=== PATIENT | female | born 1945 | race Caucasian/White ===

== ENCOUNTER 2017-09-18 11:18 | Outpatient (CLI) | payer MEDICARE ==
--- NOTE | 2017-09-18 17:42 | XRAY Report ---
THREE VIEW LUMBAR SPINE: 09/18/2017 CLINICAL INDICATION: Chronic back pain. AP, lateral, coned-down views of the lumbar spine demonstrate moderate degenerative disk and facet di sease, with minimal S-shaped scoliosis. There is no evidence of acute fracture or subluxation. The bowel gas pattern appears unremarkable. IMPRESSION: MODERATE DEGENERATIVE CHANGES, WITH MINIMAL SCOLIOSIS. JOB #: [id number] EXT JOB #:[id number]
== END 2017-09-18 11:19 | disposition home or self-care (01) ==
LOC: DI.S 11:18
PROVIDERS: ATTEND Nurse Practitioner Family
DX: M47.896 Other spondylosis, lumbar region (principal); M51.36 Other intervertebral disc degeneration, lumbar region; M41.86 Other forms of scoliosis, lumbar region
CPT/HCPCS: 72100

== ENCOUNTER 2017-10-25 11:28 | Outpatient (CLI) | payer MEDICARE ==
--- NOTE | 2017-10-26 13:44 | XRAY Report ---
DATE OF SERVICE: 10/25/2017 LEFT HIP AND PELVIS: 10/25/2017 CLINICAL INDICATION: Left hip pain. Frontal view of the hips and pelvis and frogleg lateral view of the left hip demonstrate moderate lef t hip osteoarthritis. There is no evidence of acute fracture or dislocation. No radiopaque foreign body i s seen in the soft tissues. IMPRESSION: Moderate left hip osteoarthritis. TD: 10/25/2017 18:47
== END 2017-10-25 11:29 | disposition home or self-care (01) ==
LOC: DI.S 11:28
PROVIDERS: ATTEND Nurse Practitioner Family
DX: M16.12 Unilateral primary osteoarthritis, left hip (principal)

== ENCOUNTER 2018-02-14 10:21 | Outpatient (CLI) | payer MEDICARE, OTHER ==
--- NOTE | 2018-02-14 14:04 | Ultrasound Report ---
RENAL ULTRASOUND: 02/14/2018 CLINICAL INDICATION: Chronic UTI, back pain. TECHNIQUE: Real-time scanning was performed with front office representative static images obtained. FINDINGS: The right kidney measures 10.6 x 5.7 x 4.7 cm. A 1.4 cm parapelvic cyst is present. No hydronephrosis, solid renal lesion, or perinephric collection is seen. The left kidney measures 11.3 x 6.4 x 5.3 cm. Parapelvic cysts are present, the largest measuring 1.8 cm. No hydronephrosis, solid renal lesion, or perinephric collection is seen. Prevoid, the bladder measures 7.7 x 7.1 x 3.7 cm, yielding a prevoid volume of 106 mL. The bladder wall appears normal. Bilateral ureteral jets are visualized. Postvoid residual is 55 mL. IMPRESSION: 55 ML POSTVOID RESIDUAL. NO HYDRONEPHROSIS. TD: 02/14/2018 14:03
== END 2018-02-14 10:22 | disposition home or self-care (01) ==
LOC: DI 10:21
PROVIDERS: ATTEND Nurse Practitioner Family
DX: N39.0 Urinary tract infection, site not specified (principal); M54.9 Dorsalgia, unspecified
CPT/HCPCS: 76770

== ENCOUNTER 2018-07-08 11:24 | Outpatient (CLI) | payer MEDICARE, OTHER ==
--- NOTE | 2018-07-08 16:06 | Ultrasound Report ---
Reason: edema,unspecified Procedure Date: 07/08/2018 Accession Number: [id number] / [id number] Procedure: US - Duplex Ext Veins Bilateral CPT Code: FULL RESULT: EXAM: BILATERAL LOWER EXTREMITY VENOUS ULTRASOUND EXAM DATE: 07/08/2018 01:01 PM. CLINICAL HISTORY: Edema,unspecified. COMPARISON: None. TECHNIQUE: Real-time sonographic vascular imaging was performed by the lay out machine operator through the lower extremities utilizing both color-flow and Doppler spectral analysis. Multiple employee relations representative static images were saved for review. FINDINGS: Right: Common Femoral Vein (CFV): Normal. CFV-GSV Junction: Normal. Profunda Femoral Vein (PFV): Normal. Femoral Vein (FV) Prox: Normal. Femoral Vein (FV) Mid: Normal. Femoral Vein (FV) Dist: Normal. Popliteal Vein: Normal. Posterior Tibial Veins: Normal. Peroneal Veins: Normal. Left: Common Femoral Vein (CFV): Normal. CFV-GSV Junction: Normal. Profunda Femoral Vein (PFV): Normal. Femoral Vein (FV) Prox: Normal. Femoral Vein (FV) Mid: Normal. Femoral Vein (FV) Dist: Nonocclusive thrombus is present in the distal femoral vein. Popliteal Vein: Normal. Posterior Tibial Veins: Normal. Peroneal Veins: Normal. Other: Superficial soft tissue edema is present in the legs bilaterally. IMPRESSION: 1. Nonocclusive thrombus in the left distal femoral vein. RADIA The above findings were discussed with Didi Upton RN by Dr. Nik Lacy at 16:04 hrs on 07/08/18. The ordering provider only has limited office hours on Fridays.
== END 2018-07-08 11:25 | disposition home or self-care (01) ==
LOC: DI 11:24
PROVIDERS: ATTEND Nurse Practitioner Family
DX: I82.412 Acute embolism and thrombosis of left femoral vein (principal)
CPT/HCPCS: 93970

== ENCOUNTER 2018-07-24 15:08 | Outpatient (CLI) | payer MEDICARE, OTHER ==
--- NOTE | 2018-07-25 08:37 | Ultrasound Report ---
Reason: L DISTAL FEMORAL VEIN NON OCCLUSIVE Procedure Date: 07/24/2018 Accession Number: [id number] / [id number] Procedure: US - Duplex Ext Veins Left CPT Code: FULL RESULT: EXAM: LEFT LOWER EXTREMITY VENOUS ULTRASOUND EXAM DATE: 07/24/2018 03:24 PM. CLINICAL HISTORY: Left distal femoral vein non occlusive. COMPARISON: Duplex external veins bilateral 07/08/2018 11:42 AM. TECHNIQUE: Real-time sonographic vascular imaging was performed by the charter [employer] executive director through the lower extremity utilizing both color-flow and Doppler spectral analysis. Multiple account maintenance representative static images were saved for review. FINDINGS: Common Femoral Vein (CFV): Normal. CFV-GSV Junction: Normal. Profunda Femoral Vein (PFV): Normal. Femoral Vein (FV) Prox: Normal. Femoral Vein (FV) Mid: Normal. Femoral Vein (FV) Dist: Normal. Popliteal Vein: Normal. Posterior Tibial Veins: Not well seen. Peroneal Veins: Not well seen. Contralateral Side CFV: Normal. Other: None. IMPRESSION: 1. Suboptimal visualization of posterior tibial and peroneal veins. 2. Given the limitations, no evidence for deep venous thrombosis. RADIA
== END 2018-07-24 15:09 | disposition home or self-care (01) ==
LOC: DI 15:08
PROVIDERS: ATTEND Physician Assistant
DX: I82.90 Acute embolism and thrombosis of unspecified vein (principal)

== ENCOUNTER 2018-08-15 20:56 | Outpatient (CLI) | payer MEDICARE, OTHER | END 2018-08-15 20:57 | disposition critical access hospital (66) | LOC: EMS 20:56 | PROVIDERS: ATTEND Surgery | DX: M25.552 Pain in left hip (principal) | CPT/HCPCS: A0425; A0427 ==

== ENCOUNTER 2018-08-15 21:21 | Emergency (ER) | payer MEDICARE, OTHER ==
[2018-08-15] MEDS ORDERED: ONDANSETRON 4 MG/2 ML VIAL IVP STA (21:44)
[2018-08-15] MEDS ORDERED: fentaNYL 100 MCG/2 ML VIAL IVP STA (21:44)
--- NOTE | 2018-08-15 22:08 | ED Physician Documentation ---
History of Present Illness - Stated complaint Stated Complaint: L HIP PAIN - Chief complaint Chief Complaint: Ext Problem - Additonal information Additional information: 73-year-old female presents the emergency department with worsening left hip pain. The patient has a history of significant degenerative changes in her left hip and is currently in the process of being worked up for a total joint replacement. Tonight the patient reports worsening pain in the hip. The patient has not taken her nighttime medications. No new injury. No new trauma. The patient denies pain distal to the hip or swelling of the leg. Symptoms are described as moderate. No other associated symptoms. No relieving factors Review of Systems Constitutional: denies: Fever Cardiac: denies: Chest pain / pressure, Pedal edema, Calf pain Respiratory: denies: Cough GI: denies: Abdominal Pain Skin: denies: Rash Musculoskeletal: reports: Extremity pain, Joint pain. denies: Extremity swelling, Joint swelling PD PAST MEDICAL HISTORY - Past Medical History Past Medical History: No Cardiovascular: Peripheral Vascular Disease Respiratory: None Neuro: None Endocrine/Autoimmune: HyPOthyroidism GI: None BIG DATA LEAD: None : Frequency HEENT: None Psych: Depression, Anxiety Musculoskeletal: None Derm: None - Past Surgical History Past Surgical History: No /BIG DATA LEAD: Other - Present Medications Home Medications: Ambulatory Orders Medication Instructions Recorded Confirmed RX: Diclofenac Sodium 08/15/18 RX: Furosemide 20 mg PO 08/15/18 RX: Gabapentin 600 mg PO 08/15/18 RX: Potassium Chloride 10 meq PO 08/15/18 oxyCODONE [Roxicodone] 5 mg PO ONCE 08/15/18 08/15/18 - Allergies Allergies/Adverse Reactions: Allergies Allergy/AdvReac Type Severity Reaction Status Date / Time codeine [Codeine] AdvReac Intermediate unknown Verified 08/15/18 21:33 - Social History Does the pt smoke?: No Smoking Status: Never smoker Does the pt drink ETOH?: No Does the pt have substance abuse?: No - Immunizations Immunizations are current?: Yes Immunizations: TDAP >10years/unknown - POLST Patient has POLST: No PD ED PE NORMAL - General General: Alert and oriented X 3, No acute distress - HEENT HEENT: Atraumatic, PERRL, EOMI, Ears normal - Cardiac Cardiac: RRR - Respiratory Respiratory: No respiratory distress - Derm Derm: Normal color - Extremities Extremities: No deformity. No: No tenderness to palpate (The patient has tenderness to palpation in the left hip and decreased range of motion secondary to pain. There is no swelling of the extremity. The patient has a normal dorsalis pedis pulse and brisk cap refill. 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 There is more flattening of the left femoral head compared to the right. ) PD MEDICAL DECISION MAKING - ED course ED course: The patient has severe degenerative changes in the left hip. The patient is in the process of being worked up by a orthopedic surgeon for a hip replacement. Since there is no fracture the patient appears appropriate for ongoing outpatient management. Currently the patient appears appropriate for discharge. I discussed the findings with the patient and she understands and agrees. I discussed warning signs and recommended returning to the emergency department for any worsening or concerns. Departure - Departure Disposition: 01 Home, Self Care Clinical Impression: Hip pain, acute Condition: Good Instructions: ED Degenerative Joint Disease Follow-Up: Ashley Paredes PA [Primary Care Provider] - Within 1 week Comments: Please return to the emergency department for worsening symptoms or any concerns Discharge Date/Time: 08/15/18 23:12
[2018-08-15] MEDS ORDERED: HYDROmorphone 1 MG/ML CARPUJECT IVP STA (22:24)
--- NOTE | 2018-08-15 22:31 | XRAY Report ---
Reason: pain Procedure Date: 08/15/2018 Accession Number: [id number] / [id number] Procedure: XR - Hip w/Pelvis 2-3V LT CPT Code: FULL RESULT: EXAM: LEFT HIP AND PELVIS RADIOGRAPHY. EXAM DATE: 08/15/2018 10:14 PM. HISTORY: Chronic left hip pain. COMPARISONS: Hip with pelvis 2-3 view lateral 10/25/2017 11:44 AM. TECHNIQUE: 1 view of the pelvis and 1 view of the hip. 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 There is more flattening of the left femoral head compared to the right. Soft Tissues: Normal. No soft tissue swelling. 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 There is more flattening of the left femoral head compared to the right. RADIA
[2018-08-15 23:10] VITALS: BP 151/93
== END 2018-08-15 23:12 | disposition home or self-care (01) ==
LOC: EDUNIT# → ED 21:21
DX: M25.552 Pain in left hip (principal); I73.9 Peripheral vascular disease, unspecified; E03.9 Hypothyroidism, unspecified
CPT/HCPCS: 73502; 96374; 96375; 99283; J1170

== ENCOUNTER 2020-01-21 10:30 | Outpatient (CLI) | payer MEDICARE, OTHER ==
--- NOTE | 2020-01-21 12:50 | XRAY Report ---
Reason: COUGH Procedure Date: 01/21/2020 Accession Number: [id number] / [id number] Procedure: XR - Chest 2 View X-Ray CPT Code: 88207 Final Report FULL RESULT: EXAM: CHEST RADIOGRAPHY EXAM DATE: 01/21/2020 10:36 AM. CLINICAL HISTORY: COUGH. COMPARISON: None. TECHNIQUE: 2 views. FINDINGS: Lungs/Pleura: Question small area of infiltrate left heart border. No other focal opacities evident. No pleural effusion. No pneumothorax. Normal volumes. Mediastinum: Heart and mediastinal contours are unremarkable. Other: Degenerative change in the spine. IMPRESSION: Question early infiltrate left lower lung. Otherwise negative. RADIA
== END 2020-01-21 10:31 | disposition home or self-care (01) ==
LOC: DI 10:30
PROVIDERS: ATTEND Physician Assistant
DX: R05 Cough (principal)
CPT/HCPCS: 71046; U0002

== ENCOUNTER 2020-01-21 17:02 | Outpatient (CLI) | payer MEDICARE, OTHER | END 2020-01-21 17:03 | disposition home or self-care (01) | LOC: COV 17:02 | PROVIDERS: ATTEND Family Medicine | DX: R05 Cough (principal) ==

== ENCOUNTER 2020-08-10 08:00 | Outpatient (CLI) | payer MEDICARE ==
--- NOTE | 2020-08-10 12:59 | XRAY Report ---
PROCEDURE: Hip w/Pelvis 2-3V LT INDICATIONS: LEFT HIP PAIN TECHNIQUE: AP pelvis with lateral view(s) of the bilateral hip(s). COMPARISON: 08/15/2018. FINDINGS: Bones: Patient is now status post bilateral total hip arthroplasty. No evidence for hardware complic ation. Lower lumbar spondylosis. No fractures or dislocations. Pelvic ring appears intact. No suspi cious bony lesions. Soft tissues: The visualized bowel gas pattern is normal. No suspicious soft tissue calcifications. IMPRESSION: 1. Left hip without acute radiographic abnormalities. 2. Status post bilateral total hip arthroplasty. No evidence for hardware complication. 3. Lower lumbar spondylosis. Reviewed by: Matias Dominguez MD on 08/10/2020 12:58 PM PDT Approved by: Matias Dominguez MD on 08/10/2020 12:58 PM PDT Station ID: [id number]
--- NOTE | 2020-08-10 13:03 | XRAY Report ---
PROCEDURE: Knee 4 View LT INDICATIONS: LEFT KNEE PAIN TECHNIQUE: 4 views of the left knee(s) were acquired. COMPARISON: None. FINDINGS: Bones: No acute fractures or dislocations. No suspicious bony lesions. Soft tissues: No joint effusion. No suspicious soft tissue calcifications. IMPRESSION: Left knee without acute fracture or dislocation. There is age indeterminate fracture of a small enthesophyte involving the enthesophyte of the distal quadriceps tendon at its insertion site onto the superior patella. Recommend clinical correlation for site of tenderness. If there is persistent clinical concern for a radiographically occult fracture, recommend immobilizat ion and repeat imaging in 10 to 14 days. Reviewed by: Matias Dominguez MD on 08/10/2020 1:02 PM PDT Approved by: Matias Dominguez MD on 08/10/2020 1:02 PM PDT Station ID: [id number]
== END 2020-08-10 23:59 | disposition home or self-care (01) ==
LOC: DI.S 08:00
PROVIDERS: ATTEND Physician Assistant Medical
DX: Z96.653 Presence of artificial knee joint, bilateral (principal); M47.816 Spondylosis without myelopathy or radiculopathy, lumbar region; R93.6 Abnormal findings on diagnostic imaging of limbs

== ENCOUNTER 2021-07-15 12:29 | Outpatient (CLI) | payer MEDICARE, OTHER ==
[2021-07-15 15:55] LABS: ALBUMIN/GLOBULIN RATIO 1.2 (1.0-2.2); ALKALINE PHOSPHATASE 69 IU/L (42-121); ALT ALANINE AMINOTRANSFERASE 27 IU/L (10-60); AST ASPARTATE AMINOTRANSFERASE 39 IU/L (10-42); BILIRUBIN,TOTAL 0.8 mg/dL (0.2-1.0); BUN - BLOOD UREA NITROGEN 14 mg/dL (6-20); CALCIUM 9.3 mg/dL (8.5-10.3); CARBON DIOXIDE - CO2 27 mmol/L (21-32); CHLORIDE 103 mmol/L (101-111); CHOLESTEROL 296 mg/dL; CREATININE 0.8 mg/dL (0.4-1.0); GFR - MDRD 70 (>89); GLUCOSE 108 mg/dL (70-100); HDL CHOLESTEROL 59 mg/dL; LDL CHOLESTEROL,CALCULATED 200 mg/dL; LDL/HDL RATIO 3.4 (<4.4); POTASSIUM 4.2 mmol/L (3.5-5.0); SODIUM 142 mmol/L (135-145); TOTAL PROTEIN 7.4 g/dL (6.7-8.2); TRIGLYCERIDES 185 mg/dL; VLDL CHOLESTEROL 37 mg/dL
[2021-07-15 20:55] LABS: ESTIMATED AVERAGE GLUCOSE 131 mg/dL (70-100); HEMOGLOBIN A1c% 6.2 % (4.27-6.07)
== END 2021-07-15 12:30 | disposition home or self-care (01) ==
LOC: LAB.S 12:29
PROVIDERS: ATTEND Family Medicine
DX: E11.9 Type 2 diabetes mellitus without complications (principal); E78.2 Mixed hyperlipidemia
CPT/HCPCS: 36415; 80053; 80061; 83036; 83721

== ENCOUNTER 2023-02-01 11:49 | Outpatient (CLI) | payer MEDICARE ==
[2023-02-01 14:15] LABS: BASOPHILS % (AUTO) 0.5 %; EOSINOPHILS # (AUTO) 0.1 10^3/uL (0.0-0.7); EOSINOPHILS % (AUTO) 1.5 %; HCT - HEMATOCRIT 45.1 % (37.0-47.0); HGB - HEMOGLOBIN 14.9 g/dL (12.0-16.0); LYMPHOCYTES # (AUTO) 2.2 10^3/uL (1.5-3.5); LYMPHOCYTES % (AUTO) 26.5 %; MEAN CORPUSCULAR HEMOGLOBIN 29.3 pg (27.0-31.0); MEAN CORPUSCULAR VOLUME 88.6 fL (81.0-99.0); MEAN PLATELET VOLUME 10.7 fL (7.9-10.8); MONOCYTES # (AUTO) 0.7 10^3/uL (0.0-1.0); MONOCYTES % (AUTO) 8.2 %; NEUTROPHILS # (AUTO) 5.2 10^3/uL (1.5-6.6); NEUTROPHILS % (AUTO) 62.9 %; PLT - PLATELET COUNT 272 10^3/uL (130-450); RED BLOOD COUNT 5.09 10^6/uL (4.20-5.40); RED CELL DISTRIBUTION WIDTH 12.7 % (12.0-15.0); WHITE BLOOD COUNT 8.3 x10^3/uL (4.8-10.8)
[2023-02-01 14:41] LABS: ALBUMIN/GLOBULIN RATIO 1.2 (1.0-2.2); ALKALINE PHOSPHATASE 61 IU/L (42-121); ALT ALANINE AMINOTRANSFERASE 25 IU/L (10-60); AST ASPARTATE AMINOTRANSFERASE 27 IU/L (10-42); BILIRUBIN,TOTAL 0.6 mg/dL (0.2-1.0); BUN - BLOOD UREA NITROGEN 18 mg/dL (6-20); CALCIUM 9.5 mg/dL (8.5-10.3); CARBON DIOXIDE - CO2 28 mmol/L (21-32); CHLORIDE 104 mmol/L (101-111); CHOL/HDL RATIO 3.6 (<4.4); CHOLESTEROL 197 mg/dL; CREATININE 0.8 mg/dL (0.4-1.0); GFR - MDRD 70 (>89); GLUCOSE 117 mg/dL (70-100); HDL CHOLESTEROL 55 mg/dL; LDL CHOLESTEROL,CALCULATED 115 mg/dL; LDL/HDL RATIO 2.1 (<4.4); SODIUM 138 mmol/L (135-145); TOTAL PROTEIN 7.3 g/dL (6.7-8.2); TRIGLYCERIDES 136 mg/dL; VLDL CHOLESTEROL 27 mg/dL
[2023-02-01 14:43] LABS: CREATININE,URINE 147.5 mg/dL; MICROALBUM/CREATININE RATIO,UR 26.4 ug/mg (<30.0); MICROALBUMIN,URINE 3.9 mg/dL (0-300.0)
[2023-02-01 15:10] LABS: ESTIMATED AVERAGE GLUCOSE 134 mg/dL (70-100); HEMOGLOBIN A1c% 6.3 % (4.27-6.07)
== END 2023-02-01 11:50 | disposition home or self-care (01) ==
LOC: LAB.S 11:49
PROVIDERS: ATTEND Family Medicine
DX: E11.69 Type 2 diabetes mellitus with other specified complication (principal); I10 Essential (primary) hypertension
CPT/HCPCS: 36415; 80053; 80061; 82043; 82570; 83036; 83721; 85025

== ENCOUNTER 2023-04-02 08:00 | Outpatient (CLI) | payer MEDICARE | END 2023-04-02 23:59 | disposition home or self-care (01) | LOC: LAB.R 08:00 | PROVIDERS: ATTEND Physician Assistant | DX: R31.9 Hematuria, unspecified (principal) | CPT/HCPCS: 87077; 87086; 87181 ==

== ENCOUNTER 2023-04-10 08:00 | Outpatient (CLI) | payer MEDICARE ==
[2023-04-10 19:08] LABS: BILIRUBIN,URINE NEGATIVE (NEGATIVE); GLUCOSE, URINE (UA) NEGATIVE (NEGATIVE); KETONES,URINE (UA) NEGATIVE (NEGATIVE); LEUKOCYTE ESTERASE, URINE SMALL (NEGATIVE); NITRITE,URINE NEGATIVE (NEGATIVE); OCCULT BLOOD,URINE TRACE-INTA (NEGATIVE); PROTEIN,URINE NEGATIVE (NEGATIVE); UROBILINOGEN,URINE 0.2 (NORMAL) E.U./dL (NORMAL)
[2023-04-10 19:09] LABS: CLARITY,URINE CLEAR (CLEAR)
[2023-04-10 19:19] LABS: BACTERIA,URINE Rare /HPF (None Seen); SQUAMOUS EPITHELIAL CELL,UR FEW Squamous (<= Few)
== END 2023-04-10 23:59 | disposition home or self-care (01) ==
LOC: LAB.S 08:00
PROVIDERS: ATTEND Emergency Medicine
DX: R31.9 Hematuria, unspecified (principal)
CPT/HCPCS: 81001; 87086

== ENCOUNTER 2023-08-19 15:39 | Outpatient (CLI) | payer MEDICARE | END 2023-08-19 15:40 | disposition critical access hospital (66) | LOC: EMS 15:39 | DX: R53.1 Weakness (principal); R41.0 Disorientation, unspecified; R50.9 Fever, unspecified; R11.10 Vomiting, unspecified | CPT/HCPCS: A0425; A0427 ==

== ENCOUNTER 2023-08-19 16:06 | Emergency (ER) | payer MEDICARE ==
[2023-08-19] MEDS ORDERED: IBUPROFEN 800 MG TABLET PO STA (16:21)
[2023-08-19] MEDS ORDERED: ONDANSETRON 4 MG/2 ML VIAL IVP STA (16:21)
[2023-08-19] MEDS ORDERED: SODIUM CHLORIDE 0.9% 1,000 ML IV STA ×2 (16:21→17:15)
[2023-08-19] MEDS ORDERED: ACETAMINOPHEN 325 MG TABLET PO STA (16:21)
--- NOTE | 2023-08-19 16:25 | ED Physician Documentation ---
History of Present Illness - Stated complaint Stated Complaint: AMS - History obtained from History obtained from: Patient, EMS - Additonal information Additional information: The patient comes to the emergency department chief complaint of fever and period of unresponsiveness. The patient was at [employer] with some friends when she began to say she was not feeling good. The patient became tremulous and the friends decided to drive her home. In route to home, the patient stopped responding to them. Her eyes were open but she was just staring ahead. When they got to her house, they called 911. EMS states that when they arrived, the patient seemed to be slightly confused but was responsive. They states she is improved a lot in route with some IV fluids and with cool air movement. The patient states she has not felt sick with anything recently. No cough, rhinorrhea, sore throat, shortness of breath, abdominal pain, nausea/vomiting, diarrhea, or dysuria. She states that she has had 1 other episode like this when she was on Ozempic and had her dose increased. However, at that time she did not have a fever. She went off the Ozempic and has never taken it again since. No other complaints at this time. PD PAST MEDICAL HISTORY - Past Medical History Cardiovascular: High cholesterol, Peripheral Vascular Disease Respiratory: None Neuro: None Endocrine/Autoimmune: HyPOthyroidism GI: None VERIFICATION ENGINEER: None : Incontinence, Frequency HEENT: None Psych: Depression, Anxiety Musculoskeletal: None Derm: Herpes zoster - Past Surgical History Past Surgical History: No /VERIFICATION ENGINEER: Other - Present Medications Home Medications: Ambulatory Orders Medication Instructions Recorded Confirmed Diclofenac Sodium 2 cap PO DAILY 08/15/18 10/03/18 Furosemide 20 mg PO DAILY 08/15/18 10/03/18 Gabapentin 300 mg PO TID 08/15/18 10/03/18 Potassium Chloride 20 meq PO DAILY 08/15/18 10/03/18 oxyCODONE [Roxicodone] 10 mg PO TID 08/15/18 10/03/18 Cholecalciferol (Vitamin D3) 1 cap DAILY 10/03/18 10/03/18 [Vitamin D3] DULoxetine [Cymbalta] 30 mg PO DAILY 10/03/18 10/03/18 Magnesium 1 tab PO DAILY 10/03/18 10/03/18 Multivitamin [One Daily 1 tab PO DAILY 12/06/18 12/06/18 Multivitamin] levoFLOXacin [Levaquin] 500 mg PO QD #20 tablet 08/19/23 - Allergies Allergies/Adverse Reactions: Allergies Allergy/AdvReac Type Severity Reaction Status Date / Time codeine [Codeine] AdvReac Intermediate unknown Verified 08/19/23 16:31 - Social History Does the pt smoke?: No Smoking Status: Former smoker Does the pt drink ETOH?: No Does the pt have substance abuse?: No - Immunizations Immunizations are current?: Yes Immunizations: TDAP >10years/unknown - POLST Patient has POLST: No PD ED PE NORMAL - Vitals Vital signs reviewed: Yes - General General: Alert and oriented X 3, No acute distress, Well developed/nourished - HEENT HEENT: Atraumatic, PERRL, EOMI, Moist mucous membranes - Neck Neck: Supple, no meningeal sign - Cardiac Cardiac: RRR, No murmur, Strong equal pulses - Respiratory Respiratory: No respiratory distress, Clear bilaterally - Abdomen Abdomen: Soft, Non tender, Non distended - Derm Derm: Normal color, Warm and dry, No rash - Extremities Extremities: No deformity, No edema - Neuro Neuro: Alert and oriented X 3, Other (Grossly intact) - Psych Psych: Normal mood, Normal affect Results - Vitals Vitals: Vital Signs - 24 hr 08/19/23 08/19/23 08/19/23 16:27 16:53 17:48 Temperature 39.5 C H Heart Rate 123 H 110 H 90 Respiratory 27 H 31 H 19 Rate Blood Pressure 159/89 H 167/79 H 123/85 H O2 Saturation 95 95 96 08/19/23 08/19/23 18:31 19:06 Temperature 37.8 C Heart Rate 88 82 Respiratory 14 14 Rate Blood Pressure 147/78 H 122/81 H O2 Saturation 96 96 Oxygen O2 Source Room air - Labs Labs: Laboratory Tests 08/19/23 08/19/23 08/19/23 16:35 16:45 16:45 WBC 11.5 H RBC 4.22 Hgb 12.3 Hct 37.6 MCV 89.1 MCH 29.1 MCHC 32.7 RDW 13.2 Plt Count 207 MPV 9.6 Neut # (Auto) 10.3 H Lymph # (Auto) 0.5 L [place] # (Auto) 0.5 Eos # (Auto) 0.1 Baso # (Auto) 0.0 Absolute Nucleated RBC 0.00 Nucleated RBC % 0.0 Sodium 137 Potassium 4.0 Chloride 106 Carbon Dioxide 24 Anion Gap 7.0 BUN 13 Creatinine 1.1 Estimated GFR (MDRD) 48 L Glucose 194 H Lactic Acid Calcium 8.9 Total Bilirubin 0.5 AST 23 ALT 29 Alkaline Phosphatase 86 Total Protein 6.3 L Albumin 3.5 Globulin 2.8 Albumin/Globulin Ratio 1.3 Lipase < 10 L Urine Color Urine Clarity Urine pH Ur Specific [place] Urine Protein Urine Glucose (UA) Urine Ketones Urine Occult Blood Urine Nitrite Urine Bilirubin Urine Urobilinogen Ur Leukocyte Esterase Urine RBC Urine WBC Urine WBC Clumps Ur Squamous Epith Cells Urine Bacteria Ur Microscopic Review Urine Culture Comments Nasal Adenovirus (PCR) NOT DETECTED Nasal B. parapertussis DNA (PCR) NOT DETECTED Nasal Coronavir 229E PCR NOT DETECTED Nasal Coronavir HKU1 PCR NOT DETECTED Nasal Coronavir NL63 PCR NOT DETECTED Nasal Coronavir OC43 PCR NOT DETECTED Nasal Enterovir/Rhinovir PCR NOT DETECTED Nasal Influenza B PCR NOT DETECTED Nasal Influenza A PCR NOT DETECTED Nasal Parainfluen 1 PCR NOT DETECTED Nasal Parainfluen 2 PCR NOT DETECTED Nasal Parainfluen 3 PCR NOT DETECTED Nasal Parainfluen 4 PCR NOT DETECTED Nasal RSV (PCR) NOT DETECTED Nasal B.pertussis DNA PCR NOT DETECTED Nasal C.pneumoniae (PCR) NOT DETECTED Juni Human Metapneumo PCR NOT DETECTED Nasal M.pneumoniae (PCR) NOT DETECTED Nasal SARS-CoV-2 (PCR) NOT DETECTED 08/19/23 08/19/23 16:45 18:30 WBC RBC Hgb Hct MCV MCH MCHC RDW Plt Count MPV Neut # (Auto) Lymph # (Auto) [place] # (Auto) Eos # (Auto) Baso # (Auto) Absolute Nucleated RBC Nucleated RBC % Sodium Potassium Chloride Carbon Dioxide Anion Gap BUN Creatinine Estimated GFR (MDRD) Glucose Lactic Acid 2.0 Calcium Total Bilirubin AST ALT Alkaline Phosphatase Total Protein Albumin Globulin Albumin/Globulin Ratio Lipase Urine Color YELLOW Urine Clarity HAZY Urine pH 6.0 Ur Specific [place] 1.015 Urine Protein NEGATIVE Urine Glucose (UA) NEGATIVE Urine Ketones NEGATIVE Urine Occult Blood NEGATIVE Urine Nitrite POSITIVE H Urine Bilirubin NEGATIVE Urine Urobilinogen 0.2 (NORMAL) Ur Leukocyte Esterase MODERATE H Urine RBC 0-5 Urine WBC >25 H Urine WBC Clumps PRESENT Ur Squamous Epith Cells RARE Squamous Urine Bacteria Many H Ur Microscopic Review INDICATED Urine Culture Comments INDICATED Nasal Adenovirus (PCR) Nasal B. parapertussis DNA (PCR) Nasal Coronavir 229E PCR Nasal Coronavir HKU1 PCR Nasal Coronavir NL63 PCR Nasal Coronavir OC43 PCR Nasal Enterovir/Rhinovir PCR Nasal Influenza B PCR Nasal Influenza A PCR Nasal Parainfluen 1 PCR Nasal Parainfluen 2 PCR Nasal Parainfluen 3 PCR Nasal Parainfluen 4 PCR Nasal RSV (PCR) Nasal B.pertussis DNA PCR Nasal C.pneumoniae (PCR) Juni Human Metapneumo PCR Nasal M.pneumoniae (PCR) Nasal SARS-CoV-2 (PCR) PD Medical Decision Making - ED course Complexity details: reviewed results, re-evaluated patient, considered differential, d/w patient ED course: The patient was worked up with labs, blood cultures, chest x-ray, urinalysis, and respiratory PCR panel. She was given a liter of NS and treated with Tylenol for her fever. Work-up was unremarkable except for a positive urinalysis. The pt was started on antibiotics for this. She had been hemodynamically stable in the ED, and lactic acid level was normal. She was found to feeling much better on re-evaluation, and I felt she was stable for d/c home. We have discussed the usual indications for return. Departure - Departure Disposition: Home, Self Care Clinical Impression: Urinary tract infection Qualifiers: Urinary tract infection type: acute cystitis Hematuria presence: without hematuria Qualified Code(s): N30.00 - Acute cystitis without hematuria Condition: Stable Instructions: ED UTI Cystitis Female Prescriptions: levoFLOXacin [Levaquin] 500 mg PO QD #20 tablet Comments: You have been found tonight to have a urinary tract infection and has been started on antibiotics for this. This is the reason for your fever. You will need to take your next dose of antibiotics tomorrow and should go to the [facility] to pick pulling machine tender your antibiotics tomorrow morning or afternoon. Prescription for Levaquin has been electronically transmitted to the [facility] in [place], your pharmacy of choice on record. You should also take Tylenol for your fever. The dose for this is 650 mg every 4 hours. Please do not wait until you are spiking up a fever to take the Tylenol, as you may become delirious again like you were earlier today. Be sure you are drinking 8 to 10 cups of water per day to stay hydrated. If you cannot keep your medication down or have Worsening symptoms despite antibiotics, please return to the emergency department. Forms: PCP List Discharge Date/Time: 08/19/23 19:45
[2023-08-19 16:53] LABS: BASOPHILS % (AUTO) 0.3 %; EOSINOPHILS # (AUTO) 0.1 10^3/uL (0.0-0.7); EOSINOPHILS % (AUTO) 0.5 %; HCT - HEMATOCRIT 37.6 % (37.0-47.0); HGB - HEMOGLOBIN 12.3 g/dL (12.0-16.0); LYMPHOCYTES # (AUTO) 0.5 10^3/uL (1.5-3.5); LYMPHOCYTES % (AUTO) 4.6 %; MEAN CORPUSCULAR HEMOGLOBIN 29.1 pg (27.0-31.0); MEAN CORPUSCULAR HGB CONC 32.7 g/dL (32.0-36.0); MEAN CORPUSCULAR VOLUME 89.1 fL (81.0-99.0); MEAN PLATELET VOLUME 9.6 fL (7.9-10.8); MONOCYTES # (AUTO) 0.5 10^3/uL (0.0-1.0); MONOCYTES % (AUTO) 4.6 %; NEUTROPHILS # (AUTO) 10.3 10^3/uL (1.5-6.6); NEUTROPHILS % (AUTO) 89.5 %; PLT - PLATELET COUNT 207 10^3/uL (130-450); RED BLOOD COUNT 4.22 10^6/uL (4.20-5.40); RED CELL DISTRIBUTION WIDTH 13.2 % (12.0-15.0); WHITE BLOOD COUNT 11.5 x10^3/uL (4.8-10.8)
[2023-08-19 17:07] LABS: ALBUMIN 3.5 g/dL (3.2-5.5); ALBUMIN/GLOBULIN RATIO 1.3 (1.0-2.2); ALKALINE PHOSPHATASE 86 IU/L (42-121); ALT ALANINE AMINOTRANSFERASE 29 IU/L (10-60); AST ASPARTATE AMINOTRANSFERASE 23 IU/L (10-42); BILIRUBIN,TOTAL 0.5 mg/dL (0.2-1.0); BUN - BLOOD UREA NITROGEN 13 mg/dL (6-20); CALCIUM 8.9 mg/dL (8.5-10.3); CARBON DIOXIDE - CO2 24 mmol/L (21-32); CHLORIDE 106 mmol/L (101-111); CREATININE 1.1 mg/dL (0.6-1.3); GFR - MDRD 48 (>89); GLUCOSE 194 mg/dL (74-104); SODIUM 137 mmol/L (135-145); TOTAL PROTEIN 6.3 g/dL (6.4-8.9)
[2023-08-19 17:15] LABS: LIPASE < 10 U/L (11-82)
--- NOTE | 2023-08-19 17:15 | XRAY Report ---
PROCEDURE: Chest 1 View X-Ray INDICATIONS: fever TECHNIQUE: One view of the chest was acquired. COMPARISON: None FINDINGS: Surgical changes and devices: None. Lungs and pleura: No pleural effusions or pneumothorax. Lungs are clear. Underlying chronic and int erstitial changes noted Mediastinum: Mediastinal contours appear normal. Heart size is normal. Bones and chest wall: No suspicious bony lesions. Overlying soft tissues appear unremarkable. IMPRESSION: No acute cardiopulmonary findings Reviewed by: Augie Whitehead MD on 08/19/2023 4:14 PM AKDT Approved by: Augie Whitehead MD on 08/19/2023 4:14 PM AKDT Station ID: [id number]
[2023-08-19 17:52] VITALS: O2SAT 96
[2023-08-19 18:02] LABS: B. PARAPERTUSSIS- RESP PCR PAN NOT DETECTED; B. PERTUSSIS- RESP PCR PANEL NOT DETECTED; C. PNEUMONIAE- RESP PCR PANEL NOT DETECTED; CORONAVIRUS 229E-RESP PCR NOT DETECTED; CORONAVIRUS HKU1-RESP PCR NOT DETECTED; CORONAVIRUS NL63-RESP PCR NOT DETECTED; CORONAVIRUS OC43-RESP PCR NOT DETECTED; HUMAN METAPNEUMOVIRUS NOT DETECTED; INFLUENZA A- RESP PCR PANEL NOT DETECTED; INFLUENZA B - RESP PCR PANEL NOT DETECTED; M. PNEUMONIAE- RESP PCR PANEL NOT DETECTED; PARAINFLUENZA VIRUS 1 NOT DETECTED; PARAINFLUENZA VIRUS 2 NOT DETECTED; PARAINFLUENZA VIRUS 3 NOT DETECTED; PARAINFLUENZA VIRUS 4 NOT DETECTED; RHINOVIRUS/ENTEROVIRUS NOT DETECTED; RSV- RESP PCR PANEL NOT DETECTED; SARS-CoV-2 -RESP PCR PANEL NOT DETECTED
[2023-08-19 18:37] LABS: BILIRUBIN,URINE NEGATIVE (NEGATIVE); GLUCOSE, URINE (UA) NEGATIVE (NEGATIVE); KETONES,URINE (UA) NEGATIVE (NEGATIVE); LEUKOCYTE ESTERASE, URINE MODERATE (NEGATIVE); NITRITE,URINE POSITIVE (NEGATIVE); OCCULT BLOOD,URINE NEGATIVE (NEGATIVE); PROTEIN,URINE NEGATIVE (NEGATIVE); UROBILINOGEN,URINE 0.2 (NORMAL) E.U./dL (NORMAL)
[2023-08-19 18:45] LABS: BACTERIA,URINE Many /HPF (None Seen); CLARITY,URINE HAZY (CLEAR); RBC,URINE 0-5 /HPF (0-5); SQUAMOUS EPITHELIAL CELL,UR RARE Squamous (<= Few); WBC CLUMPS,URINE PRESENT; WBC,URINE >25 /HPF (0-5)
[2023-08-19 19:10] VITALS: BP 122/81
[2023-08-19] MEDS ORDERED: levoFLOXacin 250 MG TABLET PO STA (19:10)
--- NOTE | 2023-08-20 05:09 | ED Physician Documentation ---
ED Addendum - Addendum Addendum: 08/20/23 05:08 Patient chart reviewed. 11/30 anaerobic blood cultures positive for gram-negative bacilli. Instructed nursing staff to contact patient and ask her to return to the emergency department.
== END 2023-08-19 19:45 | disposition home or self-care (01) ==
LOC: EDUNIT# → ED 16:06
DX: N30.00 Acute cystitis without hematuria (principal); B96.20 Unspecified Escherichia coli [E. coli] as the cause of diseases classified elsewhere; R78.81 Bacteremia; Z20.822 Contact with and (suspected) exposure to COVID-19; E78.00 Pure hypercholesterolemia, unspecified; E03.9 Hypothyroidism, unspecified; Z79.899 Other long term (current) drug therapy; Z87.891 Personal history of nicotine dependence
CPT/HCPCS: 36415; 71045; 80053; 81001; 83605; 83690; 85025; 87040; 87086; 87181; 87633; 96361; 96374; 99283; 99284; A9270; 81003; 87150

== ENCOUNTER 2023-08-20 06:21 | Inpatient (IN) | payer MEDICARE ==
[2023-08-20 07:44] LABS: BASOPHILS % (AUTO) 0.3 %; EOSINOPHILS # (AUTO) 0.2 10^3/uL (0.0-0.7); EOSINOPHILS % (AUTO) 1.5 %; HCT - HEMATOCRIT 36.4 % (37.0-47.0); HGB - HEMOGLOBIN 12.2 g/dL (12.0-16.0); LYMPHOCYTES # (AUTO) 1.9 10^3/uL (1.5-3.5); LYMPHOCYTES % (AUTO) 16.6 %; MEAN CORPUSCULAR HEMOGLOBIN 29.7 pg (27.0-31.0); MEAN CORPUSCULAR HGB CONC 33.5 g/dL (32.0-36.0); MEAN CORPUSCULAR VOLUME 88.6 fL (81.0-99.0); MEAN PLATELET VOLUME 9.4 fL (7.9-10.8); MONOCYTES % (AUTO) 8.4 %; NEUTROPHILS # (AUTO) 8.3 10^3/uL (1.5-6.6); NEUTROPHILS % (AUTO) 72.8 %; PLT - PLATELET COUNT 232 10^3/uL (130-450); RED BLOOD COUNT 4.11 10^6/uL (4.20-5.40); RED CELL DISTRIBUTION WIDTH 13.4 % (12.0-15.0); WHITE BLOOD COUNT 11.4 x10^3/uL (4.8-10.8)
[2023-08-20 08:01] LABS: ALBUMIN 3.5 g/dL (3.2-5.5); ALBUMIN/GLOBULIN RATIO 1.2 (1.0-2.2); BILIRUBIN,TOTAL 0.4 mg/dL (0.2-1.0); CALCIUM 9.4 mg/dL (8.5-10.3); CREATININE 1.3 mg/dL (0.6-1.3); TOTAL PROTEIN 6.5 g/dL (6.4-8.9)
--- NOTE | 2023-08-20 08:15 | ED Physician Documentation ---
PD HPI ABD PAIN - Stated complaint Stated Complaint: CALLED BY NURSE - Chief complaint Chief Complaint: General - History obtained from History obtained from: Patient - History of Present Illness Timing - onset: How many days ago (The patient was seen yesterday for chills and malaise with some nausea. Found to have a UTI by urinalysis. Vitals and blood test otherwise looking okay. Had blood cultures obtained which showed positive E. coli by bio fire overnight. Patient called to return.) Timing - duration: Days (few) Timing - details: Gradual onset Quality: Aching (some mild pains in lower abd. No flank pain.) Location: Suprapubic Radiation: No: Left flank, Right flank Associated symptoms: Nausea. No: Fever (chills and malaise) Recently seen: Emergency Dept (yesterday) Review of Systems Constitutional: reports: Chills, Myalgias. denies: Fever Nose: denies: Rhinorrhea / runny nose, Congestion Throat: denies: Sore throat Respiratory: denies: Cough GI: reports: Nausea. denies: Vomiting, Diarrhea : denies: Dysuria, Discharge Skin: denies: Rash PD PAST MEDICAL HISTORY - Past Medical History Cardiovascular: High cholesterol, Peripheral Vascular Disease Respiratory: None Neuro: None Endocrine/Autoimmune: HyPOthyroidism GI: None QUILT SEWER: None : Incontinence, Frequency HEENT: None Psych: Depression, Anxiety Musculoskeletal: None Derm: Herpes zoster - Past Surgical History Past Surgical History: No /QUILT SEWER: Other - Present Medications Home Medications: Ambulatory Orders Medication Instructions Recorded Confirmed Diclofenac Sodium 2 cap PO DAILY 08/15/18 10/03/18 Furosemide 20 mg PO DAILY 08/15/18 10/03/18 Gabapentin 300 mg PO TID 08/15/18 10/03/18 Potassium Chloride 20 meq PO DAILY 08/15/18 10/03/18 oxyCODONE [Roxicodone] 10 mg PO TID 08/15/18 10/03/18 Cholecalciferol (Vitamin D3) 1 cap DAILY 10/03/18 10/03/18 [Vitamin D3] DULoxetine [Cymbalta] 30 mg PO DAILY 10/03/18 10/03/18 Magnesium 1 tab PO DAILY 10/03/18 10/03/18 Multivitamin [One Daily 1 tab PO DAILY 12/06/18 12/06/18 Multivitamin] levoFLOXacin [Levaquin] 500 mg PO QD #20 tablet 08/19/23 - Allergies Allergies/Adverse Reactions: Allergies Allergy/AdvReac Type Severity Reaction Status Date / Time codeine [Codeine] AdvReac Intermediate unknown Verified 08/20/23 06:43 - Social History Does the pt smoke?: No Smoking Status: Former smoker Does the pt drink ETOH?: No Does the pt have substance abuse?: No - Immunizations Immunizations are current?: Yes Immunizations: TDAP >10years/unknown - POLST Patient has POLST: No PD ED PE NORMAL - Vitals Vital signs reviewed: Yes - General General: Alert and oriented X 3, No acute distress, Well developed/nourished - Neck Neck: Supple, no meningeal sign, No adenopathy - Cardiac Cardiac: RRR, No murmur - Respiratory Respiratory: Clear bilaterally - Abdomen Abdomen: Soft, Non tender, Non distended - Back Back: No CVA TTP - Derm Derm: Normal color, Warm and dry - Extremities Extremities: No deformity, Normal ROM s pain, No edema, No calf tenderness / cord - Neuro Neuro: Alert and oriented X 3, No motor deficit, Normal speech Eye Opening: Spontaneous Motor: Obeys Commands Verbal: Oriented GCS Score: 15 Results - Vitals Vitals: Vital Signs - 24 hr 08/20/23 08/20/23 08/20/23 06:43 10:10 12:14 Temperature 36.7 C 36.0 C L Heart Rate 62 59 L 59 L Respiratory 18 18 18 Rate Blood Pressure 134/67 H 134/72 H 131/69 H O2 Saturation 93 100 99 Oxygen O2 Source Room air - Labs Labs: Laboratory Tests 08/20/23 08/20/23 08/20/23 07:35 07:35 07:35 WBC 11.4 H RBC 4.11 L Hgb 12.2 Hct 36.4 L MCV 88.6 MCH 29.7 MCHC 33.5 RDW 13.4 Plt Count 232 MPV 9.4 Neut # (Auto) 8.3 H Lymph # (Auto) 1.9 Burke # (Auto) 1.0 Eos # (Auto) 0.2 Baso # (Auto) 0.0 Absolute Nucleated RBC 0.00 Nucleated RBC % 0.0 Sodium 140 Potassium 4.0 Chloride 107 Carbon Dioxide 27 Anion Gap 6.0 BUN 14 Creatinine 1.3 Estimated GFR (MDRD) 40 L Glucose 113 H Lactic Acid 0.8 Calcium 9.4 Total Bilirubin 0.4 AST 22 ALT 30 Alkaline Phosphatase 83 Total Protein 6.5 Albumin 3.5 Globulin 3.0 Albumin/Globulin Ratio 1.2 Lipase 12 - Rads (name of study) abd/pelvic CT Relevant Findings:: Prelim report reviewed (Artifact due to bilateral hip replacements. Apparent 5 mm stone at the distal left ureter with moderate left hydro ureter nephrosis.), EMP independent interpretation of test PD Medical Decision Making - ED course Complexity details: reviewed results, considered differential, d/w patient Reviewed Lab Results: White count is normal. Renal function is similar to yesterday at 1.1 with yesterday 1.0 and prior one 0.8. Lactic acid is negative at 0.8. Electrolytes otherwise are normal. ED course: The patient was seen yesterday for general systemic symptoms nausea chills and malaise. Had negative chest x-ray and viral panel. Urinalysis was consistent with UTI. Diagnosed with presumed early [place]. Blood cultures were obtained and were showing positive overnight with the E. coli by [employer]. The patient had received a dose of Levaquin yesterday. She states she is still feeling malaise and chills today but no fever. Due to concern of any obstruction associated with the pyelonephritis, I did do a CT scan which showed a likely distal ureteral stone of 5 mm with some moderate hydronephrosis and hydroureter. Concern was whether there would need to be urologic intervention with this. Our urologist here was away from town for 2 more days. I talked with Dr. Naidu who is a urologist out of [facility]. He felt with the patient's condition and labs and normal unchanged renal function that there was not a need for intervention on the stone but just treating of the infection. I conveyed this to our hospitalist Dr. Fernandes to check who would then have the patient in the hospital for treatment of the pyelonephritis and the bacteremia. Departure - Departure Disposition: 66 [facility] DC/Xfer Clinical Impression: Ureteral stone with hydronephrosis, UTI (urinary tract infection), Bacteremia Condition: Stable Record reviewed to determine appropriate education?: Yes Forms: PCP List
[2023-08-20] MEDS ORDERED: SODIUM CHLORIDE 0.9% 1,000 ML IV STA (08:18)
[2023-08-20] MEDS ORDERED: cefTRIAXone 1 GM VIAL IVP STA (08:18)
[2023-08-20] MEDS ORDERED: ONDANSETRON 4 MG/2 ML VIAL IVP STA (08:43)
--- NOTE | 2023-08-20 10:31 | CT Report ---
PROCEDURE: ABDOMEN/PELVIS W INDICATIONS: UTI, fever, flank pain CONTRAST: 100ml omni 300 TECHNIQUE: After the administration of IV contrast, 5 mm thick sections acquired from the diaphragms to the symp hysis. 5 mm thick coronal and sagittal reformats were acquired. For radiation dose reduction, the f ollowing was used: automated exposure control, adjustment of mA and/or kV according to patient size. COMPARISON: None FINDINGS: Image quality: There is limited visualization of the pelvis secondary to artifact from bilateral hip arthroplasty. Lung bases and heart: Unremarkable. CHEST WALL: There is an appearance of more focal soft tissue mass within the right breast measuring 1 .4 cm on series 2 image 6. No priors are available for comparison. Liver: Liver is enlarged measuring 20.5 cm with steatosis. Gallbladder and biliary tree: Dependent luminal stones are present without wall thickening. Spleen: No splenomegaly. Pancreas: No pancreatic ductal dilation. Adrenals: No adrenal nodule. Kidneys and ureters: There is significant artifact overlying the region of the distal left ureter. Ho wever, there is a focus of what appears to be linear calcification within the ureter measuring approx imately 5 mm. There is moderate to severe hydronephrosis and hydroureter. Bowel and peritoneum: No bowel distension. No pathologic free fluid. Diverticula are present without inflammatory change. Lymph nodes: No central or retroperitoneal adenopathy. Vessels: No infrarenal aortic aneurysm. PELVIS Reproductive organs: Unremarkable. Bladder: No abnormal wall thickening, accounting for underdistension. Pelvic lymph nodes: No pelvic adenopathy by size criteria. Bones: No aggressive osseous abnormality. Other: No significant ventral or inguinal hernia. IMPRESSION: Linear 5 mm calcification partially obscured secondary to artifact in what appears to be the distal l eft ureter. There is moderate to severe hydronephrosis and hydroureter. Cholelithiasis without cholecystitis. Hepatic steatosis. Diverticulosis. Reviewed by: Phylicia Jiang MD on 08/20/2023 10:29 AM PDT Approved by: Phylicia Jiang MD on 08/20/2023 10:29 AM PDT Station ID: [id number]
[2023-08-20] MEDS ORDERED: TAMSULOSIN 0.4 MG CAPSULE PO STA (12:07)
[2023-08-20] MEDS ORDERED: iohexoL-300 100 ML VIAL IVP ONE (13:44)
[2023-08-20] MEDS ORDERED: ONDANSETRON 4 MG/2 ML VIAL IVP PRN (15:36)
[2023-08-20] MEDS ORDERED: SODIUM CHLORIDE FLUSH 0.9% 10 ML SYRINGE IVP PRN (15:36)
--- NOTE | 2023-08-20 15:51 | HISTORY & PHYSICAL EXAMINATION ---
Chief Complaint - Chief Complaint Chief Complaint: Called back into the hospital because of positive blood cultures History of Present Illness - Admitted From Admitted From:: ED - History Obtained From History obtained from: ED provider and the patient - History of Present Illness HPI Comment/Other: This is a 78-year-old female with a history of arthritis, CKD and prior bladder infections. She was out with friends yesterday and felt worse and was driven home by a friend; they described her a being "unresponsive" and staring ahead while being a passenger in the car. When she got home she was more confused than normal and EMS was called. She was brought to our remergency room. She was found to have a fever of 39.4 C and was tachycardic at 120. She described having generalized malaise for a day. She denied any other symptoms. 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 The work-up yesterday in our ER showed that she had a urinary tract infection.WBC 11.5, no Lactic Acid level was done. She was discharged home and prescribed oral antibiotics. After just several hours the blood cultures donre in ER turned positive. She was called to come back into the ER. Upon presentation to the ER she had normal vital signs, was afebrile. Her WBC count was unchanged at 11.4, BUN/creatinine is normal and unchanged. CT of the abdomen/pelvis was done today and it showed a 5 mm (presumed) stone in the distal left ureter causing moderate to severe hydronephrosis. She also has findings of pyelonephritis. The ED provider reached out to the on-call Urologist at [facility], Dr. Pierre who stated that with normal vitals signs and white blood count, she could be sent home for treatment of the UTI, and did not need transfer for a stent. However tghe ED provider plan is to admit her here, because of the bacteremia. I requested that the ED provider get a second opinion from a different Urologist. The ED provider reached out to the [facility] Urologist who is currently out of town. Dr. Maldonado Barrera did respond and he had this case described to him. He said that because of the hydronephrosis plus UTI and bacteremia, stent placement would be preferable however it could wait until he is back in town to do a consultation in 48 hours. If she wshould become septic, then she needs transfer for an urgent stent. The ED provider and I spoke about this patient. She will be admitted to the Hospitalist service. I spoke to the patient about her CODE BLUE wishes and she wants to be a Full Code. History - Past Medical History Cardiovascular: reports: High cholesterol, Peripheral Vascular Disease Respiratory: reports: None Neuro: reports: None Endocrine/Autoimmune: reports: HyPOthyroidism GI: reports: None SSN/SSBN ASSISTANT NAVIGATOR: reports: None : reports: Incontinence, Frequency HEENT: reports: None Psych: reports: Depression, Anxiety Musculoskeletal: reports: None Derm: reports: Herpes zoster MRSA Hx?: No - Past Surgical History Ortho: reports: Hip replacement (bilaterally) /SSN/SSBN ASSISTANT NAVIGATOR: reports: Other - Family & Social History Living arrangement: At home Living Situation: Alone Social History Notes: She quit smoking cigarettes 40 years ago. She drinks no alcohol. No illicit drug use. She is compliant with her meds. 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 She drives. - POLST Patient has POLST: No Meds/Allgy - Home Medications Home Medications: Ambulatory Orders Medication Instructions Recorded Confirmed Cholecalciferol (Vitamin D3) 1 cap PO DAILY 10/03/18 08/20/23 [Vitamin D3] Magnesium 1 tab PO QPM 10/03/18 08/20/23 Multivitamin [One Daily 1 tab PO DAILY 10/03/18 08/20/23 Multivitamin] levoFLOXacin [Levaquin] 500 mg PO QD #20 tablet 08/19/23 Acetaminophen [Tylenol Arthritis] 1 tab PO BID PRN 08/20/23 08/20/23 Acetaminophen/Diphenhydramine [Cvs 2 tab PO QPM 08/20/23 08/20/23 Acetaminophen Pm Caplet] Diclofenac Sodium Dr [Voltaren] 75 mg PO BIDWM 08/20/23 08/20/23 Doxycycline Hyclate 50 mg PO DAILY 08/20/23 08/20/23 Ferrous Gluconate [Fergon] 1 tab PO DAILY 08/20/23 08/20/23 Zinc Sulfate 1 cap PO DAILY 08/20/23 08/20/23 - Allergies Allergies/Adverse Reactions: Allergies Allergy/AdvReac Type Severity Reaction Status Date / Time codeine [Codeine] AdvReac Intermediate Nausea Verified 08/20/23 17:24 Review of Systems - Constitutional Constitutional: reports: Malaise, Weakness - Musculoskeletal Musculoskeletal: reports: Muscle aches - Integumentary Integumentary: reports: Acne - All Other Systems All Other Systems: reports: Reviewed and negative Exam - Vital Signs Reviewed Vital Signs: Yes Vital Signs: Vital Signs x48h Temp Pulse Resp BP Pulse Ox 08/20/23 12:14 59 L 18 131/69 H 99 08/20/23 10:10 36.0 C L 59 L 18 134/72 H 100 - Physical Exam General Appearance: positive: No acute distress, Alert, Other (Obese, appears younger than her age) Eyes Bilateral: positive: Normal inspection, EOMI ENT: positive: ENT inspection nml, No signs of dehydration Neck: positive: Nml inspection, No JVD Respiratory: positive: No respiratory distress, Breath sounds nml Cardiovascular: positive: Regular rate & rhythm, No murmur Abdomen: positive: Non-tender, Nml bowel sounds, Other (Obese with a pannus) Skin: positive: Warm, Dry Extremities: positive: Non-tender, No pedal edema Neurologic/Psychiatric: positive: Oriented x3, CN's nml (2-12), Motor nml Conclusion/Plan - Problem List (1) E coli bacteremia Conclusion/Plan: Source appears to be her urine. She does not have signs of sepsis Plan: We will continue with IV ceftriaxone 2 g IV daily. A 7 to 10-day total course of antibiotics will be planned Start a probiotic Await sensitivity results to tailor antibiotics. (2) E. coli UTI Conclusion/Plan: The urine culture is growing a bacteria, also already identified is E. coli Plan: As a #1 Follow CBC daily (3) Ureteral stone with hydronephrosis Conclusion/Plan: Decision for urgent or emergent urologic intervention was discussed at length with myself and the ED provider, the ED provider in 2 separate Urologists. Plan: She will be admitted to inpatient status to manage the underlying infection and get Urology input when Dr. Barrera is back in town in 48 hours. If she should become septic then she needs transfer for an urgent stent placement by Urology. I will order the Urology consult for 08/22/23. We will continue with the Tamsulosin that was started in the ER (4) Arthritis Conclusion/Plan: Bilat hips were replaced. She has chronic L SI joint pain from arthritis Plan: Will hold her diclofenac, watching her creatinine while she needs IV fluids for the sepsis I will order a topical lidocaine patch daily over the SI joint on the left - Lab Results Fish Bones: 08/20/23 07:35 08/20/23 07:35 - Diagnostic Imaging Results Diagnostic Imaging Results: positive: Final report reviewed - Other Other Results/Comments: Attestation: The patient is expected to be hospitalized for greater than 2 midnights, and is expected to be discharged or transferred to another facility within 96 hours: Yes
[2023-08-20] MEDS: SODIUM CHLORIDE 0.9% 1,000 ML IV SCH (16:26)
--- NOTE | 2023-08-20 17:24 | PHARMACY PROGRESS NOTE ---
- Best Possible Medication History Admit Date and Time: 08/20/23 1538 Processed by: Pharmacy Medication History completed: Yes Patient Interview: Completed Secondary Source(s): Prescription bottles, Insurance records Patient has not started levofloxacin yet - prescribed by ER provider yesterday As the person ultimately responsible for medication therapy, providers are able to order a medication from an existing home medication list in [facility] via the "Reconcile Routine" prior to Confirmation of that medication by support associate. Such practice is discouraged except when the physician, in their clinical judgment, deems that a medical need exists for a medication without regard to previous use.
[2023-08-20] MEDS ORDERED: ACETAMINOPHEN 650 MG PO PRN (17:57)
[2023-08-20] MEDS: LIDOCAINE PATCH 5% TOP SCH (20:26)
[2023-08-20] MEDS: MAGNESIUM OXIDE 400 MG TABLET PO SCH (20:26)
[2023-08-20] MEDS: SODIUM CHLORIDE FLUSH 0.9% 10 ML SYRINGE IVP SCH (20:27)
[2023-08-20] MEDS: polyethylene glycoL 3350 17 GM PACKET PO SCH (20:29)
[2023-08-20] MEDS ORDERED: [UNRECOGNIZED DRUG - OTHER] PO SCH (21:00)
[2023-08-20] MEDS ORDERED: ACETAMINOPHEN PO SCH (21:00)
[2023-08-20] MEDS ORDERED: DIPHENHYDRAMINE PO SCH (21:00)
[2023-08-20] MEDS: diphenhydrAMINE 25 MG CAPSULE PO PRN (21:54)
[2023-08-20] MEDS: ACETAMINOPHEN 325 MG TABLET PO PRN (21:54)
[2023-08-21] MEDS: SODIUM CHLORIDE FLUSH 0.9% 10 ML SYRINGE IVP SCH ×4 (00:08→23:43)
[2023-08-21] MEDS: SODIUM CHLORIDE 0.9% 1,000 ML IV SCH ×2 (04:54→18:57)
[2023-08-21 05:48] LABS: BASOPHILS % (AUTO) 0.4 %; EOSINOPHILS # (AUTO) 0.3 10^3/uL (0.0-0.7); EOSINOPHILS % (AUTO) 3.3 %; HGB - HEMOGLOBIN 12.1 g/dL (12.0-16.0); LYMPHOCYTES # (AUTO) 1.9 10^3/uL (1.5-3.5); LYMPHOCYTES % (AUTO) 23.3 %; MEAN CORPUSCULAR HEMOGLOBIN 29.3 pg (27.0-31.0); MEAN CORPUSCULAR HGB CONC 32.7 g/dL (32.0-36.0); MEAN CORPUSCULAR VOLUME 89.6 fL (81.0-99.0); MEAN PLATELET VOLUME 9.9 fL (7.9-10.8); MONOCYTES # (AUTO) 0.8 10^3/uL (0.0-1.0); MONOCYTES % (AUTO) 9.3 %; NEUTROPHILS # (AUTO) 5.2 10^3/uL (1.5-6.6); NEUTROPHILS % (AUTO) 63.3 %; PLT - PLATELET COUNT 245 10^3/uL (130-450); RED BLOOD COUNT 4.13 10^6/uL (4.20-5.40); RED CELL DISTRIBUTION WIDTH 13.6 % (12.0-15.0); WHITE BLOOD COUNT 8.2 x10^3/uL (4.8-10.8)
[2023-08-21 06:02] LABS: CALCIUM 9.2 mg/dL (8.5-10.3); CREATININE 1.2 mg/dL (0.6-1.3); POTASSIUM 4.1 mmol/L (3.5-4.5)
[2023-08-21] MEDS: cefTRIAXone 2 GM in SODIUM CHLORIDE 0.9% MINIBAG 100 ML IV SCH (08:14)
[2023-08-21] MEDS: MULTIVITAMIN TABLET PO SCH (08:14)
[2023-08-21] MEDS: LACTOBACILLUS RHAMNOSUS GG CAPSULE PO SCH (08:14)
[2023-08-21] MEDS: CHOLECALCIFEROL 25 MCG TABLET PO SCH (08:14)
[2023-08-21] MEDS: FERROUS GLUCONATE 324 MG TABLET PO SCH (08:14)
[2023-08-21] MEDS: polyethylene glycoL 3350 17 GM PACKET PO SCH (08:17)
--- NOTE | 2023-08-21 09:25 | PROVIDER PROGRESS NOTE ---
Assessment/Plan - Problem List (1) E coli bacteremia Assessment/Plan: Improving Continue IV ceftriaxone 2 g IV daily, await for culture sensitivity (2) Ureteral stone with hydronephrosis Assessment/Plan: Continue treat infection Urology consult tomorrow, no sign of sepsis, no urgent urology intervention is indicated Continue on tamsulosin (4) Left thigh pain Assessment/Plan: Patient reports left anterior thigh pain, started after being in the hospital, she was concerned about clots Ultrasound Doppler ruled out DVT Likely it is a muscular skeletal pain Analgesia as needed, monitoring (5) Morbid obesity with BMI of 40.0-44.9, adult Assessment/Plan: Complex all aspects of healthcare Increase the risk for prolonged hospital stay - Current Meds Current Meds: Current Medications Generic Name Dose Route Start Last Admin Trade Name Freq PRN Reason Stop Dose Admin Acetaminophen 650 mg 08/20/23 15:36 08/20/23 21:54 Acetaminophen 325 Mg Tablet PO 650 mg Q4HR PRN Administration Pain 1 to 4, or Fever Cholecalciferol 25 mcg 08/21/23 09:00 08/21/23 08:14 Cholecalciferol 25 Mcg Tablet PO 25 mcg DAILY TOYA Administration Diphenhydramine HCl 25 mg 08/20/23 17:58 08/20/23 21:54 Diphenhydramine 25 Mg Capsule PO 25 mg QPM PRN Administration Insomnia Ferrous Gluconate 324 mg 08/21/23 09:00 08/21/23 08:14 Ferrous Gluconate 324 Mg Tablet PO 324 mg DAILY TOYA Administration Sodium Chloride 1,000 mls @ 75 mls/hr 08/20/23 16:00 08/21/23 04:54 Normal Saline 0.9% IV 75 mls/hr .[id number] TOYA Administration Ceftriaxone Sodium 2 gm/ 100 mls @ 200 mls/hr 08/21/23 09:00 08/21/23 08:14 Sodium Chloride IV 200 mls/hr DAILY TOYA Administration Lactobacillus Rhamnosus 1 cap 08/21/23 09:00 08/21/23 08:14 Lactobacillus Rhamnosus Gg Capsule PO 1 cap DAILY TOYA Administration Lidocaine 1 patch 08/20/23 19:21 08/20/23 20:26 Lidocaine Patch 5% TOP 1 patch DAILY TOYA Administration Magnesium Oxide 400 mg 08/20/23 21:00 08/20/23 20:26 Magnesium Oxide 400 Mg Tablet PO 400 mg QPM TOYA Administration Multivitamins 1 tab 08/21/23 08:00 08/21/23 08:14 Multivitamin Tablet PO 1 tab DAILYWM TOYA Administration Polyethylene Glycol 17 gm 08/20/23 20:00 08/21/23 08:17 Polyethylene Glycol 3350 17 Gm Packet PO 17 gm DAILY TOYA Administration Sodium Chloride 10 ml 08/20/23 15:36 08/20/23 16:26 Sodium Chloride Flush 0.9% 10 Ml Syringe IVP 10 ml PRN PRN Administration NEEDED PER PROVIDER ORDERS Sodium Chloride 10 ml 08/20/23 17:00 08/21/23 08:14 Sodium Chloride Flush 0.9% 10 Ml Syringe IVP 10 ml 0100,0900,1700 TOYA Administration - Lab Result Fish Bone Diagrams: 08/21/23 05:25 08/21/23 05:25 Subjective - Subjective Patient Reports: Feeling Better, Pain (Left thigh pain patient concerns about possible clots) Objective Vital Signs: Vital Signs - 24 hr 08/20/23 08/20/23 08/20/23 10:10 12:14 16:11 Temperature 36.0 C L Heart Rate 59 L 59 L 69 Heart Rate [ Brachial] Respiratory 18 18 20 Rate Blood Pressure 134/72 H 131/69 H 139/69 H Blood Pressure [Right Brachial artery] Blood Pressure [Right] O2 Saturation 100 99 98 08/20/23 08/20/23 08/20/23 16:34 20:58 23:41 Temperature 37.1 C 36.9 C 37 C Heart Rate Heart Rate [ 76 70 73 Brachial] Respiratory 20 18 16 Rate Blood Pressure Blood Pressure 138/65 H [Right Brachial artery] Blood Pressure 104/70 137/68 H [Right] O2 Saturation 97 96 95 08/21/23 08/21/23 04:52 08:17 Temperature 36.7 C 36.7 C Heart Rate Heart Rate [ 62 59 L Brachial] Respiratory 18 18 Rate Blood Pressure Blood Pressure 141/79 H 138/72 H [Right Brachial artery] Blood Pressure [Right] O2 Saturation 96 97 Oxygen O2 Source Room air I&O (Last 24 Hrs): Intake and Output Totals x24h 08/19/23 08/20/23 08/21/23 23:59 23:59 23:59 Intake Total 1938.75 596.25 Output Total 1000 Balance 1938.75 -403.75 General: Alert, Oriented x3 HEENT: PERRLA, EOMI Neck: Supple, No JVD Neuro: Alert, Non Focal Cardiovascular: Regular rate Respiratory: Chest non-tender, No respiratory distress Abdomen: Normal bowel sounds Extremities: No clubbing - Results Results: Laboratory Results WBC 8.2 x10^3/uL (4.8-10.8) 08/21/23 05:25 RBC 4.13 10^6/uL (4.20-5.40) L 08/21/23 05:25 Hgb 12.1 g/dL (12.0-16.0) 08/21/23 05:25 Hct 37.0 % (37.0-47.0) 08/21/23 05:25 MCV 89.6 fL (81.0-99.0) 08/21/23 05:25 MCH 29.3 pg (27.0-31.0) 08/21/23 05:25 MCHC 32.7 g/dL (32.0-36.0) 08/21/23 05:25 RDW 13.6 % (12.0-15.0) 08/21/23 05:25 Plt Count 245 10^3/uL (130-450) 08/21/23 05:25 MPV 9.9 fL (7.9-10.8) 08/21/23 05:25 Neut # (Auto) 5.2 10^3/uL (1.5-6.6) 08/21/23 05:25 Lymph # (Auto) 1.9 10^3/uL (1.5-3.5) 08/21/23 05:25 [place] # (Auto) 0.8 10^3/uL (0.0-1.0) 08/21/23 05:25 Eos # (Auto) 0.3 10^3/uL (0.0-0.7) 08/21/23 05:25 Baso # (Auto) 0.0 10^3/uL (0.0-0.1) 08/21/23 05:25 Absolute Nucleated RBC 0.00 x10^3/uL 08/21/23 05:25 Nucleated RBC % 0.0 /100WBC 08/21/23 05:25 Sodium 142 mmol/L (135-145) 08/21/23 05:25 Potassium 4.1 mmol/L (3.5-4.5) 08/21/23 05:25 Chloride 108 mmol/L (101-111) 08/21/23 05:25 Carbon Dioxide 27 mmol/L (21-32) 08/21/23 05:25 Anion Gap 7.0 (6-13) 08/21/23 05:25 BUN 16 mg/dL (6-20) 08/21/23 05:25 Creatinine 1.2 mg/dL (0.6-1.3) 08/21/23 05:25 Estimated GFR (MDRD) 44 (>89) L 08/21/23 05:25 Glucose 128 mg/dL (74-104) H 08/21/23 05:25 Lactic Acid 0.8 mmol/L (0.5-2.2) 08/20/23 07:35 Calcium 9.2 mg/dL (8.5-10.3) 08/21/23 05:25 Total Bilirubin 0.4 mg/dL (0.2-1.0) 08/20/23 07:35 AST 22 IU/L (10-42) 08/20/23 07:35 ALT 30 IU/L (10-60) 08/20/23 07:35 Alkaline Phosphatase 83 IU/L (42-121) 08/20/23 07:35 Total Protein 6.5 g/dL (6.4-8.9) 08/20/23 07:35 Albumin 3.5 g/dL (3.2-5.5) 08/20/23 07:35 Globulin 3.0 g/dL (2.1-4.2) 08/20/23 07:35 Albumin/Globulin Ratio 1.2 (1.0-2.2) 08/20/23 07:35 Lipase 12 U/L (11-82) 08/20/23 07:35 Sepsis Event Note (H) - Evaluation Current Stage of Sepsis: Ruled out ABX Reporting Has patient been on IV antibiotics over the past 48 hours?: Yes Current Medications - Current Medications Current Medications: Active Medications Acetaminophen (Acetaminophen 325 Mg Tablet) 650 mg PO Q4HR PRN PRN Reason: Pain 1 to 4, or Fever Last Admin: 08/21/23 11:50 Dose: 650 mg Cholecalciferol (Cholecalciferol 25 Mcg Tablet) 25 mcg PO DAILY [facility] Last Admin: 08/21/23 08:14 Dose: 25 mcg Diphenhydramine HCl (Diphenhydramine 25 Mg Capsule) 25 mg PO QPM PRN PRN Reason: Insomnia Last Admin: 08/20/23 21:54 Dose: 25 mg Ferrous Gluconate (Ferrous Gluconate 324 Mg Tablet) 324 mg PO DAILY [facility] Last Admin: 08/21/23 08:14 Dose: 324 mg Sodium Chloride (Normal Saline 0.9%) 1,000 mls @ 75 mls/hr IV .[id number] [facility] Last Admin: 08/21/23 04:54 Dose: 75 mls/hr Ceftriaxone Sodium 2 gm/ (Sodium Chloride) 100 mls @ 200 mls/hr IV DAILY [facility] Last Infusion: 08/21/23 09:29 Dose: Infused Lactobacillus Rhamnosus (Lactobacillus Rhamnosus Gg Capsule) 1 cap PO DAILY [facility] Last Admin: 08/21/23 08:14 Dose: 1 cap Lidocaine (Lidocaine Patch 5%) 1 patch TOP DAILY [facility] Last Admin: 08/21/23 11:33 Dose: Not Given Magnesium Oxide (Magnesium Oxide 400 Mg Tablet) 400 mg PO QPM [facility] Last Admin: 08/20/23 20:26 Dose: 400 mg Multivitamins (Multivitamin Tablet) 1 tab PO DAILYWM [facility] Last Admin: 08/21/23 08:14 Dose: 1 tab Ondansetron HCl (Ondansetron 4 Mg/2 Ml Vial) 4 mg IVP Q6HR PRN PRN Reason: Nausea / Vomiting Polyethylene Glycol (Polyethylene Glycol 3350 17 Gm Packet) 17 gm PO DAILY [facility] Last Admin: 08/21/23 08:17 Dose: 17 gm Sodium Chloride (Sodium Chloride Flush 0.9% 10 Ml Syringe) 10 ml IVP PRN PRN PRN Reason: NEEDED PER PROVIDER ORDERS Last Admin: 08/20/23 16:26 Dose: 10 ml Sodium Chloride (Sodium Chloride Flush 0.9% 10 Ml Syringe) 10 ml IVP 0100,0900,1700 [facility] Last Admin: 08/21/23 08:14 Dose: 10 ml Cholecalciferol (Vitamin D3) [Vitamin D3] 1 cap PO DAILY 10/03/18 Magnesium 1 tab PO QPM 10/03/18 Multivitamin [One Daily Multivitamin] 1 tab PO DAILY 10/03/18 Acetaminophen [Tylenol Arthritis] 1 tab PO BID PRN 08/20/23 Acetaminophen/Diphenhydramine [[facility]vs Acetaminophen Pm Caplet] 2 tab PO QPM 08/20/[address] [Voltaren] 75 mg PO BIDWM 08/20/23 Doxycycline Hyclate 50 mg PO DAILY 08/20/23 Ferrous Gluconate [Fergon] 1 tab PO DAILY 08/20/23 Zinc Sulfate 1 cap PO DAILY 08/20/23
[2023-08-21] MEDS: LIDOCAINE PATCH 5% TOP SCH ×2 (11:33→21:15)
[2023-08-21] MEDS: ACETAMINOPHEN 325 MG TABLET PO PRN ×2 (11:50→21:27)
[2023-08-21] MEDS: MAGNESIUM OXIDE 400 MG TABLET PO SCH (21:15)
--- NOTE | 2023-08-21 21:44 | Ultrasound Report ---
PROCEDURE: Duplex Ext Veins Left INDICATIONS: left upper leg pain, new, after hospital stay TECHNIQUE: Real-time imaging, as well as color and pulse Doppler interrogation, were performed of the lower extr emity deep veins from the inguinal ligament to the popliteal fossa. Attempted visualization of the ca lf veins was performed. COMPARISON: None. FINDINGS: The deep veins are normally compressible, and free of intraluminal thrombus. Color and pu lse Doppler demonstrate normal phasic intraluminal flow. There is normal augmentation response to di stal compression maneuver. IMPRESSION: 1. No DVT in the left lower extremity. 2. Preliminary results given by the cleaning custodian to the ordering provider immediately following the st udy. Reviewed by: Jessica Su MD on 08/21/2023 9:43 PM PDT Approved by: Jessica Su MD on 08/21/2023 9:43 PM PDT Station ID: [id number]
[2023-08-21] MEDS: diphenhydrAMINE 25 MG CAPSULE PO PRN (22:37)
[2023-08-22] MEDS: ACETAMINOPHEN 325 MG TABLET PO PRN ×3 (04:25→21:16)
[2023-08-22 05:35] LABS: BASOPHILS % (AUTO) 0.5 %; EOSINOPHILS # (AUTO) 0.2 10^3/uL (0.0-0.7); EOSINOPHILS % (AUTO) 2.8 %; HCT - HEMATOCRIT 37.9 % (37.0-47.0); HGB - HEMOGLOBIN 12.2 g/dL (12.0-16.0); LYMPHOCYTES % (AUTO) 24.9 %; MEAN CORPUSCULAR HGB CONC 32.2 g/dL (32.0-36.0); MEAN PLATELET VOLUME 9.9 fL (7.9-10.8); MONOCYTES # (AUTO) 0.7 10^3/uL (0.0-1.0); MONOCYTES % (AUTO) 8.2 %; NEUTROPHILS # (AUTO) 5.2 10^3/uL (1.5-6.6); PLT - PLATELET COUNT 265 10^3/uL (130-450); RED BLOOD COUNT 4.21 10^6/uL (4.20-5.40); RED CELL DISTRIBUTION WIDTH 13.4 % (12.0-15.0); WHITE BLOOD COUNT 8.2 x10^3/uL (4.8-10.8)
[2023-08-22 05:49] LABS: CALCIUM 9.2 mg/dL (8.5-10.3); POTASSIUM 4.2 mmol/L (3.5-4.5)
[2023-08-22] MEDS ORDERED: MORPHINE 10 MG/ML VIAL IVP PRN (06:16)
[2023-08-22] MEDS: FERROUS GLUCONATE 324 MG TABLET PO SCH (08:24)
[2023-08-22] MEDS: cefTRIAXone 2 GM in SODIUM CHLORIDE 0.9% MINIBAG 100 ML IV SCH (08:24)
[2023-08-22] MEDS: MULTIVITAMIN TABLET PO SCH (08:24)
[2023-08-22] MEDS: LACTOBACILLUS RHAMNOSUS GG CAPSULE PO SCH (08:24)
[2023-08-22] MEDS: CHOLECALCIFEROL 25 MCG TABLET PO SCH (08:24)
[2023-08-22] MEDS: polyethylene glycoL 3350 17 GM PACKET PO SCH (08:25)
[2023-08-22] MEDS: SODIUM CHLORIDE FLUSH 0.9% 10 ML SYRINGE IVP SCH ×2 (08:25→16:26)
[2023-08-22] MEDS: SODIUM CHLORIDE 0.9% 1,000 ML IV SCH (08:25)
--- NOTE | 2023-08-22 08:48 | PROVIDER PROGRESS NOTE ---
Assessment/Plan - Problem List (1) E coli bacteremia Assessment/Plan: Improving Continue on ceftriaxone 2 g a day, total treatment course is planned for 7 days (2) Ureteral stone with hydronephrosis Assessment/Plan: Urology Dr. Barrera may do procedure tomorrow, he recommends to keep N.p.o. after midnight (3) Left leg pain Assessment/Plan: Ruled out DVT, its muscle skeletal pain Improved (5) Morbid obesity with BMI of 40.0-44.9, adult Assessment/Plan: Educated on diet and lifestyle change - Current Meds Current Meds: Current Medications Generic Name Dose Route Start Last Admin Trade Name Freq PRN Reason Stop Dose Admin Acetaminophen 650 mg 08/20/23 15:36 08/22/23 04:25 Acetaminophen 325 Mg Tablet PO 650 mg Q4HR PRN Administration Pain 1 to 4, or Fever Cholecalciferol 25 mcg 08/21/23 09:00 08/22/23 08:24 Cholecalciferol 25 Mcg Tablet PO 25 mcg DAILY TOYA Administration Diphenhydramine HCl 25 mg 08/20/23 17:58 08/21/23 22:37 Diphenhydramine 25 Mg Capsule PO 25 mg QPM PRN Administration Insomnia Ferrous Gluconate 324 mg 08/21/23 09:00 08/22/23 08:24 Ferrous Gluconate 324 Mg Tablet PO 324 mg DAILY TOYA Administration Sodium Chloride 1,000 mls @ 75 mls/hr 08/20/23 16:00 08/22/23 08:25 Normal Saline 0.9% IV 75 mls/hr .[id number] TOYA Administration Ceftriaxone Sodium 2 gm/ 100 mls @ 200 mls/hr 08/21/23 09:00 08/22/23 08:24 Sodium Chloride IV 200 mls/hr DAILY TOYA Administration Lactobacillus Rhamnosus 1 cap 08/21/23 09:00 08/22/23 08:24 Lactobacillus Rhamnosus Gg Capsule PO 1 cap DAILY TOYA Administration Lidocaine 1 patch 08/20/23 19:21 08/21/23 21:15 Lidocaine Patch 5% TOP 1 patch DAILY TOYA Administration Magnesium Oxide 400 mg 08/20/23 21:00 08/21/23 21:15 Magnesium Oxide 400 Mg Tablet PO 400 mg QPM TOYA Administration Multivitamins 1 tab 08/21/23 08:00 08/22/23 08:24 Multivitamin Tablet PO 1 tab DAILYWM TOYA Administration Polyethylene Glycol 17 gm 08/20/23 20:00 08/22/23 08:25 Polyethylene Glycol 3350 17 Gm Packet PO Not Given DAILY TOYA Sodium Chloride 10 ml 08/20/23 15:36 08/20/23 16:26 Sodium Chloride Flush 0.9% 10 Ml Syringe IVP 10 ml PRN PRN Administration NEEDED PER PROVIDER ORDERS Sodium Chloride 10 ml 08/20/23 17:00 08/22/23 08:25 Sodium Chloride Flush 0.9% 10 Ml Syringe IVP Not Given 0100,0900,1700 TOYA - Lab Result Fish Bone Diagrams: 08/22/23 04:30 08/22/23 04:30 - Additional Planning My Orders: My Active Orders 08/21/23 Dinner DIET [Regular Diet] [DIET] Subjective - Subjective Patient Reports: Feeling Better, Pain (Patient reports slightly change of her vision and reports some pain behind her eyes which was transient for about 2 hours other than that no other new conditions) Objective Vital Signs: Vital Signs - 24 hr 08/21/23 08/21/23 08/21/23 13:00 15:46 20:24 Temperature 36.9 C 36.6 C 37.4 C Heart Rate [ 63 59 L 71 Brachial] Respiratory 20 16 16 Rate Blood Pressure 127/73 148/83 H 146/79 H [Right Brachial artery] O2 Saturation 97 98 97 08/21/23 08/22/23 08/22/23 23:43 04:25 07:24 Temperature 37.0 C 36.9 C 36.8 C Heart Rate [ 77 77 60 Brachial] Respiratory 18 16 16 Rate Blood Pressure 167/75 H 171/78 H 154/65 H [Right Brachial artery] O2 Saturation 96 94 96 Oxygen O2 Source Room air I&O (Last 24 Hrs): Intake and Output Totals x24h 08/20/23 08/21/23 08/22/23 23:59 23:59 23:59 Intake Total 1938.75 2910.25 1640 Output Total 1220 750 Balance 1938.75 1690.25 890 General: Alert, Oriented x3, Cooperative HEENT: PERRLA, EOMI, Other (Eyeballs are soft On palpation, conjunctiva appears normal) Neck: Supple, No JVD Neuro: Alert, Non Focal, CN 2-12 Grossly Intact Cardiovascular: Regular rate, Normal S1, Normal S2 Respiratory: No respiratory distress Abdomen: Soft, No tenderness - Results Results: Laboratory Results WBC 8.2 x10^3/uL (4.8-10.8) 08/22/23 04:30 RBC 4.21 10^6/uL (4.20-5.40) 08/22/23 04:30 Hgb 12.2 g/dL (12.0-16.0) 08/22/23 04:30 Hct 37.9 % (37.0-47.0) 08/22/23 04:30 MCV 90.0 fL (81.0-99.0) 08/22/23 04:30 MCH 29.0 pg (27.0-31.0) 08/22/23 04:30 MCHC 32.2 g/dL (32.0-36.0) 08/22/23 04:30 RDW 13.4 % (12.0-15.0) 08/22/23 04:30 Plt Count 265 10^3/uL (130-450) 08/22/23 04:30 MPV 9.9 fL (7.9-10.8) 08/22/23 04:30 Neut # (Auto) 5.2 10^3/uL (1.5-6.6) 08/22/23 04:30 Lymph # (Auto) 2.0 10^3/uL (1.5-3.5) 08/22/23 04:30 [place] # (Auto) 0.7 10^3/uL (0.0-1.0) 08/22/23 04:30 Eos # (Auto) 0.2 10^3/uL (0.0-0.7) 08/22/23 04:30 Baso # (Auto) 0.0 10^3/uL (0.0-0.1) 08/22/23 04:30 Absolute Nucleated RBC 0.00 x10^3/uL 08/22/23 04:30 Nucleated RBC % 0.0 /100WBC 08/22/23 04:30 Sodium 142 mmol/L (135-145) 08/22/23 04:30 Potassium 4.2 mmol/L (3.5-4.5) 08/22/23 04:30 Chloride 109 mmol/L (101-111) 08/22/23 04:30 Carbon Dioxide 27 mmol/L (21-32) 08/22/23 04:30 Anion Gap 6.0 (6-13) 08/22/23 04:30 BUN 13 mg/dL (6-20) 08/22/23 04:30 Creatinine 1.0 mg/dL (0.6-1.3) 08/22/23 04:30 Estimated GFR (MDRD) 54 (>89) L 08/22/23 04:30 Glucose 123 mg/dL (74-104) H 08/22/23 04:30 Lactic Acid 0.8 mmol/L (0.5-2.2) 08/20/23 07:35 Calcium 9.2 mg/dL (8.5-10.3) 08/22/23 04:30 Total Bilirubin 0.4 mg/dL (0.2-1.0) 08/20/23 07:35 AST 22 IU/L (10-42) 08/20/23 07:35 ALT 30 IU/L (10-60) 08/20/23 07:35 Alkaline Phosphatase 83 IU/L (42-121) 08/20/23 07:35 Total Protein 6.5 g/dL (6.4-8.9) 08/20/23 07:35 Albumin 3.5 g/dL (3.2-5.5) 08/20/23 07:35 Globulin 3.0 g/dL (2.1-4.2) 08/20/23 07:35 Albumin/Globulin Ratio 1.2 (1.0-2.2) 08/20/23 07:35 Lipase 12 U/L (11-82) 08/20/23 07:35 Sepsis Event Note (H) - Evaluation Current Stage of Sepsis: Ruled out ABX Reporting Has patient been on IV antibiotics over the past 48 hours?: Yes Current Medications - Current Medications Current Medications: Active Medications Acetaminophen (Acetaminophen 325 Mg Tablet) 650 mg PO Q4HR PRN PRN Reason: Pain 1 to 4, or Fever Last Admin: 08/22/23 04:25 Dose: 650 mg Carboxymethylcellulose (Carboxymethylcellulose Ophth Drops) 1 drops EACHEYE PRN PRN PRN Reason: Dry Eye Cholecalciferol (Cholecalciferol 25 Mcg Tablet) 25 mcg PO DAILY TOYA Last Admin: 08/22/23 08:24 Dose: 25 mcg Ferrous Gluconate (Ferrous Gluconate 324 Mg Tablet) 324 mg PO DAILY [facility] Last Admin: 08/22/23 08:24 Dose: 324 mg Ceftriaxone Sodium 2 gm/ (Sodium Chloride) 100 mls @ 200 mls/hr IV DAILY [facility] Last Infusion: 08/22/23 09:06 Dose: Infused Lactobacillus Rhamnosus (Lactobacillus Rhamnosus Gg Capsule) 1 cap PO DAILY [facility] Last Admin: 08/22/23 08:24 Dose: 1 cap Lidocaine (Lidocaine Patch 5%) 1 patch TOP DAILY [facility] Last Admin: 08/21/23 21:15 Dose: 1 patch Magnesium Oxide (Magnesium Oxide 400 Mg Tablet) 400 mg PO QPM [facility] Last Admin: 08/21/23 21:15 Dose: 400 mg Morphine Sulfate (Morphine 10 Mg/Ml Vial) 2 mg IVP Q3H PRN PRN Reason: PAIN >8 Multivitamins (Multivitamin Tablet) 1 tab PO DAILYWM [facility] Last Admin: 08/22/23 08:24 Dose: 1 tab Ondansetron HCl (Ondansetron 4 Mg/2 Ml Vial) 4 mg IVP Q6HR PRN PRN Reason: Nausea / Vomiting Polyethylene Glycol (Polyethylene Glycol 3350 17 Gm Packet) 17 gm PO DAILY [facility] Last Admin: 08/22/23 08:25 Dose: Not Given Sodium Chloride (Sodium Chloride Flush 0.9% 10 Ml Syringe) 10 ml IVP PRN PRN PRN Reason: NEEDED PER PROVIDER ORDERS Last Admin: 08/20/23 16:26 Dose: 10 ml Sodium Chloride (Sodium Chloride Flush 0.9% 10 Ml Syringe) 10 ml IVP 0100,0900,1700 [facility] Last Admin: 08/22/23 08:25 Dose: Not Given Cholecalciferol (Vitamin D3) [Vitamin D3] 1 cap PO DAILY 10/03/18 Magnesium 1 tab PO QPM 10/03/18 Multivitamin [One Daily Multivitamin] 1 tab PO DAILY 10/03/18 Acetaminophen [Tylenol Arthritis] 1 tab PO BID PRN 08/20/23 Acetaminophen/Diphenhydramine [[facility]vs Acetaminophen Pm Caplet] 2 tab PO QPM 08/20/[address] [Voltaren] 75 mg PO BIDWM 08/20/23 Doxycycline Hyclate 50 mg PO DAILY 08/20/23 Ferrous Gluconate [Fergon] 1 tab PO DAILY 08/20/23 Zinc Sulfate 1 cap PO DAILY 08/20/23
[2023-08-22] MEDS ORDERED: CARBOXYMETHYLCELLULOSE OPHTH DROPS EACHEYE PRN (13:16)
[2023-08-22] MEDS: MAGNESIUM OXIDE 400 MG TABLET PO SCH (21:17)
[2023-08-22] MEDS: diphenhydrAMINE 25 MG CAPSULE PO PRN (21:46)
[2023-08-23] MEDS: ACETAMINOPHEN 325 MG TABLET PO PRN ×3 (01:48→22:43)
[2023-08-23] MEDS: SODIUM CHLORIDE FLUSH 0.9% 10 ML SYRINGE IVP SCH ×3 (01:48→15:50)
[2023-08-23 05:12] LABS: BASOPHILS # (AUTO) 0.1 10^3/uL (0.0-0.1); BASOPHILS % (AUTO) 0.6 %; EOSINOPHILS # (AUTO) 0.3 10^3/uL (0.0-0.7); EOSINOPHILS % (AUTO) 2.9 %; HCT - HEMATOCRIT 37.6 % (37.0-47.0); HGB - HEMOGLOBIN 12.4 g/dL (12.0-16.0); LYMPHOCYTES # (AUTO) 2.1 10^3/uL (1.5-3.5); LYMPHOCYTES % (AUTO) 24.7 %; MEAN CORPUSCULAR HEMOGLOBIN 29.3 pg (27.0-31.0); MEAN CORPUSCULAR VOLUME 88.9 fL (81.0-99.0); MEAN PLATELET VOLUME 9.7 fL (7.9-10.8); MONOCYTES # (AUTO) 0.6 10^3/uL (0.0-1.0); MONOCYTES % (AUTO) 6.5 %; NEUTROPHILS # (AUTO) 5.6 10^3/uL (1.5-6.6); NEUTROPHILS % (AUTO) 64.5 %; PLT - PLATELET COUNT 252 10^3/uL (130-450); RED BLOOD COUNT 4.23 10^6/uL (4.20-5.40); RED CELL DISTRIBUTION WIDTH 13.3 % (12.0-15.0); WHITE BLOOD COUNT 8.6 x10^3/uL (4.8-10.8)
[2023-08-23 05:29] LABS: CALCIUM 9.2 mg/dL (8.5-10.3); CREATININE 1.1 mg/dL (0.6-1.3); POTASSIUM 4.4 mmol/L (3.5-4.5)
--- NOTE | 2023-08-23 08:13 | CONSULTATION NOTE ---
Referring Provider Name of Referring Provider:: Hospitalist Consult Date: 08/23/23 Chief Complaint - Chief Complaint Chief Complaint: Bacteremia History of Present Illness - Admitted From Admitted From:: ER - History Obtained From Records Reviewed: Hospital History obtained from: Patient Exam Limitations: none - History of Present Illness HPI Comment/Other: Brianna is a 78-year-old woman with no urological history, morbid obesity, who presented to the hospital last week with UTI-like symptoms and fever. She was started on Levaquin and sent home. She was called back to the ER a few days later when her blood cultures returned positive for E. coli infection consistent with her urine culture. She had a CT scan on Sunday which showed a 5 mm distal ureteral stone with moderate to severe left-sided hydroureteronephrosis. Per my discussion with the ER physician at the time they consulted an outside hospital urologist for transfer however as the patient was afebrile and hemodynamically stable at the time he thought she could go home with antibiotics alone. I was out of town at this time but the ER physician discussed her case again I recommended she be admitted to the hospital until I returned so that she can be carefully monitored for signs of worsening sepsis. She has remained afebrile her white count has improved to normal. She is feeling quite well. She has not seen the stone pass. She has remained on ceftriaxone History - Past Medical History Cardiovascular: reports: High cholesterol, Peripheral Vascular Disease Respiratory: reports: None Neuro: reports: None Endocrine/Autoimmune: reports: HyPOthyroidism GI: reports: None NEWS ANALYST: reports: None : reports: Incontinence, Frequency HEENT: reports: None Psych: reports: Depression, Anxiety Musculoskeletal: reports: None Derm: reports: Herpes zoster MRSA Hx?: No Other Past Medical History: cataract surgery - Past Surgical History Ortho: reports: Hip replacement (bilaterally) /NEWS ANALYST: reports: Other HEENT: reports: Cataracts Derm: reports: Skin cancer surgery - Family & Social History Living arrangement: At home Living Situation: Alone Social History Notes: She quit smoking cigarettes 40 years ago. She drinks no alcohol. No illicit drug use. She is compliant with her meds. 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 She drives. - POLST Patient has POLST: No Meds/Allgy - Home Medications Home Medications: Ambulatory Orders Medication Instructions Recorded Confirmed Cholecalciferol (Vitamin D3) 1 cap PO DAILY 10/03/18 08/20/23 [Vitamin D3] Magnesium 1 tab PO QPM 10/03/18 08/20/23 Multivitamin [One Daily 1 tab PO DAILY 10/03/18 08/20/23 Multivitamin] levoFLOXacin [Levaquin] 500 mg PO QD #20 tablet 08/19/23 Acetaminophen [Tylenol Arthritis] 1 tab PO BID PRN 08/20/23 08/20/23 Acetaminophen/Diphenhydramine [[facility] 2 tab PO QPM 08/20/23 08/20/23 Acetaminophen Pm Caplet] Diclofenac Sodium Dr [Voltaren] 75 mg PO BIDWM 08/20/23 08/20/23 Doxycycline Hyclate 50 mg PO DAILY 08/20/23 08/20/23 Ferrous Gluconate [Fergon] 1 tab PO DAILY 08/20/23 08/20/23 Zinc Sulfate 1 cap PO DAILY 08/20/23 08/20/23 - Allergies Allergies/Adverse Reactions: Allergies Allergy/AdvReac Type Severity Reaction Status Date / Time codeine [Codeine] AdvReac Intermediate Nausea Verified 08/20/23 17:24 Exam - Vital Signs Vital Signs: Vital Signs x48h Temp Pulse Resp BP Pulse Ox 08/23/23 07:40 36.4 C L 79 16 168/89 H 95 08/23/23 05:45 36.3 C L 64 16 152/78 H 96 - Physical Exam General Appearance: positive: No acute distress Respiratory: positive: Breath sounds nml Cardiovascular: positive: Regular rate & rhythm Conclusion and Plan - Lab Results Laboratory Results 08/23/23 04:43: Sodium 142, Potassium 4.4, Chloride 110, Carbon Dioxide 26, Anion Gap 6.0, BUN 15, Creatinine 1.1, Estimated GFR (MDRD) 48 L, Glucose 127 H, Calcium 9.2 08/23/23 04:43: WBC 8.6, RBC 4.23, Hgb 12.4, Hct 37.6, MCV 88.9, MCH 29.3, MCHC 33.0, RDW 13.3, Plt Count 252, MPV 9.7, Neut # (Auto) 5.6, Lymph # (Auto) 2.1, [place] # (Auto) 0.6, Eos # (Auto) 0.3, Baso # (Auto) 0.1, Absolute Nucleated RBC 0.00, Nucleated RBC % 0.0 08/22/23 04:30: Sodium 142, Potassium 4.2, Chloride 109, Carbon Dioxide 27, Anion Gap 6.0, BUN 13, Creatinine 1.0, Estimated GFR (MDRD) 54 L, Glucose 123 H, Calcium 9.2 08/22/23 04:30: WBC 8.2, RBC 4.21, Hgb 12.2, Hct 37.9, MCV 90.0, MCH 29.0, MCHC 32.2, RDW 13.4, Plt Count 265, MPV 9.9, Neut # (Auto) 5.2, Lymph # (Auto) 2.0, [place] # (Auto) 0.7, Eos # (Auto) 0.2, Baso # (Auto) 0.0, Absolute Nucleated RBC 0.00, Nucleated RBC % 0.0 - Diagnostic Imaging Results Diagnostic Imaging Results: positive: Read independently - Diagnosis Diagnosis: Left ureteral stone, bacteremia, UTI - Consultation Note Consultation Note: 78yo morbidly obese F with left ureteral 5mm stone in setting of UTI and bacteremia, clinically stable and doing well - Plan Plan: I discussed at length with the patient my concerns about her having an infection and the likely source that is obstructed. I strongly recommend a cystoscopy, left ureteral stent placement. However, as she is clinically doing quite well and has been on antibiotics for several days I have offered her to also try and remove the stone via ureteroscopy and laser lithotripsy, but only if after starting the procedure my examination shows no evidence of significant continued infection for example purulent urine or inflamed mucosa. We discussed the risk of this procedure including: Worsening infection, new infection, sepsis, blood in the urine, stent colic. We discussed the high possibility of is requiring a second procedure to remove the stone in the future. She states full understanding and consents to the procedure, all questions answered. She is n.p.o.
--- NOTE | 2023-08-23 09:27 | ANESTHESIA ---
Pre-Anesthesia VS, & Labs - Diagnosis Diagnosis Left ureteral stone, bacteremia, UTI - Procedure L cystoscopy with ureteral stent Vital Signs: Temp Pulse Resp BP Pulse Ox O2 Flow Rate 36.4 C L 79 16 168/89 H 95 08/23/23 07:40 08/23/23 07:40 08/23/23 07:40 08/23/23 07:40 08/23/23 07:40 Height: 5 ft 6 in Weight (kg): 114.5 kg Body Mass Index: 40.7 BMI Classification: Morbidly Obese - NPO >8 hours (1000 meds held for surgery. MVI, FE, laxative) - Is Patient ?: No - Lab Results Current Lab Results: Laboratory Tests 08/23/23 04:43: Sodium 142, Potassium 4.4, Chloride 110, Carbon Dioxide 26, Anion Gap 6.0, BUN 15, Creatinine 1.1, Estimated GFR (MDRD) 48 L, Glucose 127 H, Calcium 9.2 08/23/23 04:43: WBC 8.6, RBC 4.23, Hgb 12.4, Hct 37.6, MCV 88.9, MCH 29.3, MCHC 33.0, RDW 13.3, Plt Count 252, MPV 9.7, Neut # (Auto) 5.6, Lymph # (Auto) 2.1, [place] # (Auto) 0.6, Eos # (Auto) 0.3, Baso # (Auto) 0.1, Absolute Nucleated RBC 0.00, Nucleated RBC % 0.0 08/22/23 04:30: Sodium 142, Potassium 4.2, Chloride 109, Carbon Dioxide 27, Anion Gap 6.0, BUN 13, Creatinine 1.0, Estimated GFR (MDRD) 54 L, Glucose 123 H, Calcium 9.2 08/22/23 04:30: WBC 8.2, RBC 4.21, Hgb 12.2, Hct 37.9, MCV 90.0, MCH 29.0, MCHC 32.2, RDW 13.4, Plt Count 265, MPV 9.9, Neut # (Auto) 5.2, Lymph # (Auto) 2.0, [place] # (Auto) 0.7, Eos # (Auto) 0.2, Baso # (Auto) 0.0, Absolute Nucleated RBC 0.00, Nucleated RBC % 0.0 08/21/23 05:25: Sodium 142, Potassium 4.1, Chloride 108, Carbon Dioxide 27, Anion Gap 7.0, BUN 16, Creatinine 1.2, Estimated GFR (MDRD) 44 L, Glucose 128 H, Calcium 9.2 08/21/23 05:25: WBC 8.2, RBC 4.13 L, Hgb 12.1, Hct 37.0, MCV 89.6, MCH 29.3, MCHC 32.7, RDW 13.6, Plt Count 245, MPV 9.9, Neut # (Auto) 5.2, Lymph # (Auto) 1.9, [place] # (Auto) 0.8, Eos # (Auto) 0.3, Baso # (Auto) 0.0, Absolute Nucleated RBC 0.00, Nucleated RBC % 0.0 08/20/23 07:35: Lactic Acid 0.8 08/20/23 07:35: Sodium 140, Potassium 4.0, Chloride 107, Carbon Dioxide 27, Anion Gap 6.0, BUN 14, Creatinine 1.3, Estimated GFR (MDRD) 40 L, Glucose 113 H, Calcium 9.4, Total Bilirubin 0.4, AST 22, ALT 30, Alkaline Phosphatase 83, Total Protein 6.5, Albumin 3.5, Globulin 3.0, Albumin/Globulin Ratio 1.2, Lipase 12 08/20/23 07:35: WBC 11.4 H, RBC 4.11 L, Hgb 12.2, Hct 36.4 L, MCV 88.6, MCH 29.7, MCHC 33.5, RDW 13.4, Plt Count 232, MPV 9.4, Neut # (Auto) 8.3 H, Lymph # (Auto) 1.9, [place] # (Auto) 1.0, Eos # (Auto) 0.2, Baso # (Auto) 0.0, Absolute Nucleated RBC 0.00, Nucleated RBC % 0.0 Lab results reviewed: Yes Fish Bones: 08/23/23 04:43 08/23/23 04:43 Home Medications and Allergies Home Medications: Ambulatory Orders Acetaminophen [Tylenol Arthritis] 1 tab PO BID PRN 08/20/23 Acetaminophen/Diphenhydramine [[facility] Acetaminophen Pm Caplet] 2 tab PO QPM 08/20/[address] [Voltaren] 75 mg PO BIDWM 08/20/23 Doxycycline Hyclate 50 mg PO DAILY 08/20/23 Ferrous Gluconate [Fergon] 1 tab PO DAILY 08/20/23 Zinc Sulfate 1 cap PO DAILY 08/20/23 Active Medications Acetaminophen (Acetaminophen 325 Mg Tablet) 650 mg PO Q4HR PRN PRN Reason: Pain 1 to 4, or Fever Last Admin: 08/23/23 01:48 Dose: 650 mg Carboxymethylcellulose (Carboxymethylcellulose Ophth Drops) 1 drops EACHEYE PRN PRN PRN Reason: Dry Eye Cholecalciferol (Cholecalciferol 25 Mcg Tablet) 25 mcg PO DAILY [facility] Last Admin: 08/22/23 08:24 Dose: 25 mcg Diphenhydramine HCl (Diphenhydramine 25 Mg Capsule) 25 mg PO QPM PRN PRN Reason: Insomnia Last Admin: 08/22/23 21:46 Dose: 25 mg Ferrous Gluconate (Ferrous Gluconate 324 Mg Tablet) 324 mg PO DAILY [facility] Last Admin: 08/22/23 08:24 Dose: 324 mg Ceftriaxone Sodium 2 gm/ (Sodium Chloride) 100 mls @ 200 mls/hr IV DAILY [facility] Last Infusion: 08/22/23 09:06 Dose: Infused Lactobacillus Rhamnosus (Lactobacillus Rhamnosus Gg Capsule) 1 cap PO DAILY [facility] Last Admin: 08/22/23 08:24 Dose: 1 cap Lidocaine (Lidocaine Patch 5%) 1 patch TOP DAILY [facility] Last Admin: 08/21/23 21:15 Dose: 1 patch Magnesium Oxide (Magnesium Oxide 400 Mg Tablet) 400 mg PO QPM [facility] Last Admin: 08/22/23 21:17 Dose: 400 mg Morphine Sulfate (Morphine 10 Mg/Ml Vial) 2 mg IVP Q3H PRN PRN Reason: PAIN >8 Multivitamins (Multivitamin Tablet) 1 tab PO DAILYWM [facility] Last Admin: 08/22/23 08:24 Dose: 1 tab Ondansetron HCl (Ondansetron 4 Mg/2 Ml Vial) 4 mg IVP Q6HR PRN PRN Reason: Nausea / Vomiting Polyethylene Glycol (Polyethylene Glycol 3350 17 Gm Packet) 17 gm PO DAILY [facility] Last Admin: 08/22/23 08:25 Dose: Not Given Sodium Chloride (Sodium Chloride Flush 0.9% 10 Ml Syringe) 10 ml IVP PRN PRN PRN Reason: NEEDED PER PROVIDER ORDERS Last Admin: 10/23/23 16:26 Dose: 10 ml Sodium Chloride (Sodium Chloride Flush 0.9% 10 Ml Syringe) 10 ml IVP 0 100,0900,1700 [facility] Last Admin: 08/23/23 01:48 Dose: 10 ml Cholecalciferol (Vitamin D3) [Vitamin D3] 1 cap PO DAILY 10/03/18 Magnesium 1 tab PO QPM 10/03/18 Multivitamin [One Daily Multivitamin] 1 tab PO DAILY 10/03/18 Acetaminophen [Tylenol Arthritis] 1 tab PO BID PRN 08/20/23 Acetaminophen/Diphenhydramine [[facility]vs Acetaminophen Pm Caplet] 2 tab PO QPM 08/20/[address] [Voltaren] 75 mg PO BIDWM 08/20/23 Doxycycline Hyclate 50 mg PO DAILY 08/20/23 Ferrous Gluconate [Fergon] 1 tab PO DAILY 08/20/23 Zinc Sulfate 1 cap PO DAILY 08/20/23 Allergies/Adverse Reactions: Allergies Allergy/AdvReac Type Severity Reaction Status Date / Time codeine [Codeine] AdvReac Intermediate Nausea Verified 08/20/23 17:24 Anes History & Medical History - Anesthetic History Anesthesia Complications: reports: No previous complications Family history of Anesthesia Complications: Denies Family history of Malignant Hyperthermia: Denies - Medical History Cardiovascular: reports: High cholesterol, Peripheral Vascular Disease Pulmonary: reports: None Gastrointestinal: reports: None Urinary: reports: Incontinence, Frequency Neuro: reports: None Musculoskeletal: reports: None Endocrine/Autoimmune: reports: HyPOthyroidism Blood Disorders: reports: None Skin: reports: Herpes zoster Smoking Status: Former smoker Psychosocial: reports: No issues indicated History of Cancer?: No Other Past Medical History: cataract surgery - Surgical History Eyes Ears Nose Throat (EENT): reports: Cataracts Gynecologic: reports: Other Orthopedic: reports: Hip replacement (bilaterally) Dermatologic: reports: Skin cancer surgery Exam General: Alert, Oriented x3, Cooperative Dental: WNL Mouth Openin Fingerbreadth Neck Mobility: Normal Mallampati classification: II Thyromental Distance: 4-6 cm Respiratory: Lungs clear, Normal breath sounds, No respiratory distress Cardiovascular: Regular rate Neurological: Normal speech Mental/Cognitive Status: Alert/Oriented X3, Normal for patient Cognitive Status: Within normal limits Plan Anesthesia Type: General Consent for Procedure(s) Verified and Reviewed: Yes Code Status: Attempt Resuscitation ASA classification: 3-Severe systemic disease Is this case an emergency?: Yes
[2023-08-23] MEDS: cefTRIAXone 2 GM in SODIUM CHLORIDE 0.9% MINIBAG 100 ML IV SCH (09:39)
[2023-08-23] MEDS: LIDOCAINE PATCH 5% TOP SCH (09:40)
[2023-08-23] MEDS: polyethylene glycoL 3350 17 GM PACKET PO SCH (09:41)
[2023-08-23] MEDS ORDERED: PROPOFOL 200 MG/20 ML VIAL IVP ONE (11:34)
[2023-08-23] MEDS ORDERED: fentaNYL 100 MCG/2 ML VIAL ONE (11:35)
--- NOTE | 2023-08-23 12:02 | PROVIDER PROGRESS NOTE ---
Assessment/Plan - Problem List (1) E coli bacteremia Assessment/Plan: Improving, continue on IV ceftriaxone (2) Ureteral stone with hydronephrosis Assessment/Plan: Urethral stent was placed by urologist today During the procedure there were a gush of dark and possibly purulent urine noted therefore stent was placed instead of doing stone retrieval Recommend patient to be antibiotics for total 14 days Follow-up outpatient to have second procedure to remove the stone (3) Morbid obesity with BMI of 40.0-44.9, adult Assessment/Plan: Encourage lifestyle modification. - Current Meds Current Meds: Current Medications Generic Name Dose Route Start Last Admin Trade Name Freq PRN Reason Stop Dose Admin Acetaminophen 650 mg 08/20/23 15:36 08/23/23 01:48 Acetaminophen 325 Mg Tablet PO 650 mg Q4HR PRN Administration Pain 1 to 4, or Fever Cholecalciferol 25 mcg 08/21/23 09:00 08/22/23 08:24 Cholecalciferol 25 Mcg Tablet PO 25 mcg DAILY [facility] Administration Diphenhydramine HCl 25 mg 08/22/23 21:34 08/22/23 21:46 Diphenhydramine 25 Mg Capsule PO 25 mg QPM PRN Administration Insomnia Ferrous Gluconate 324 mg 08/21/23 09:00 08/22/23 08:24 Ferrous Gluconate 324 Mg Tablet PO 324 mg DAILY [facility] Administration Ceftriaxone Sodium 2 gm/ 100 mls @ 200 mls/hr 08/21/23 09:00 08/23/23 10:32 Sodium Chloride IV Infused DAILY [facility] Infusion Lactobacillus Rhamnosus 1 cap 08/21/23 09:00 08/22/23 08:24 Lactobacillus Rhamnosus Gg Capsule PO 1 cap DAILY [facility] Administration Lidocaine 1 patch 08/20/23 19:21 08/23/23 09:40 Lidocaine Patch 5% TOP 1 patch DAILY [facility] Administration Magnesium Oxide 400 mg 08/20/23 21:00 08/22/23 21:17 Magnesium Oxide 400 Mg Tablet PO 400 mg QPM [facility] Administration Multivitamins 1 tab 08/21/23 08:00 08/22/23 08:24 Multivitamin Tablet PO 1 tab DAILYWM [facility] Administration Polyethylene Glycol 17 gm 08/20/23 20:00 08/23/23 09:41 Polyethylene Glycol 3350 17 Gm Packet PO Not Given DAILY [facility] Sodium Chloride 10 ml 08/20/23 15:36 08/20/23 16:26 Sodium Chloride Flush 0.9% 10 Ml Syringe IVP 10 ml PRN PRN Administration NEEDED PER PROVIDER ORDERS Sodium Chloride 10 ml 08/20/23 17:00 08/23/23 09:41 Sodium Chloride Flush 0.9% 10 Ml Syringe IVP 10 ml 0100,0900,1700 [facility] Administration - Lab Result Fish Bone Diagrams: 08/23/23 04:43 08/23/23 04:43 - Additional Planning My Orders: My Active Orders 08/22/23 13:16 Carboxymethylcellulose 1% Opht [Refresh 1% Ophth Drops] 1 drops EACHEYE PRN PRN 08/22/23 Dinner Regular Diet [DIET] Subjective - Subjective Patient Reports: Pain (Back pain flank pain after the procedure) Objective Vital Signs: Vital Signs - 24 hr 08/22/23 08/22/23 08/22/23 17:00 20:50 23:30 Temperature 36.6 C 36.8 C 36.6 C Heart Rate [ 70 67 67 Brachial] Respiratory 16 18 16 Rate Blood Pressure 189/83 H 159/90 H 182/86 H [Right Brachial artery] O2 Saturation 97 97 94 08/23/23 08/23/23 05:45 07:40 Temperature 36.3 C L 36.4 C L Heart Rate [ 64 79 Brachial] Respiratory 16 16 Rate Blood Pressure 152/78 H 168/89 H [Right Brachial artery] O2 Saturation 96 95 Oxygen O2 Source Room air I&O (Last 24 Hrs): Intake and Output Totals x24h 08/21/23 08/22/23 08/23/23 23:59 23:59 23:59 Intake Total 2910.25 3277.5 100 Output Total 1220 750 800 Balance 1690.25 2527.5 -700 General: Oriented x3 HEENT: PERRLA, EOMI Neck: No JVD Neuro: Alert, Focal Deficits, Non Focal Respiratory: No respiratory distress Abdomen: Normal bowel sounds, Soft Extremities: No clubbing, No edema - Results Results: Laboratory Results WBC 8.6 x10^3/uL (4.8-10.8) 08/23/23 04:43 RBC 4.23 10^6/uL (4.20-5.40) 08/23/23 04:43 Hgb 12.4 g/dL (12.0-16.0) 08/23/23 04:43 Hct 37.6 % (37.0-47.0) 08/23/23 04:43 MCV 88.9 fL (81.0-99.0) 08/23/23 04:43 MCH 29.3 pg (27.0-31.0) 08/23/23 04:43 MCHC 33.0 g/dL (32.0-36.0) 08/23/23 04:43 RDW 13.3 % (12.0-15.0) 08/23/23 04:43 Plt Count 252 10^3/uL (130-450) 08/23/23 04:43 MPV 9.7 fL (7.9-10.8) 08/23/23 04:43 Neut # (Auto) 5.6 10^3/uL (1.5-6.6) 08/23/23 04:43 Lymph # (Auto) 2.1 10^3/uL (1.5-3.5) 08/23/23 04:43 [place] # (Auto) 0.6 10^3/uL (0.0-1.0) 08/23/23 04:43 Eos # (Auto) 0.3 10^3/uL (0.0-0.7) 08/23/23 04:43 Baso # (Auto) 0.1 10^3/uL (0.0-0.1) 08/23/23 04:43 Absolute Nucleated RBC 0.00 x10^3/uL 08/23/23 04:43 Nucleated RBC % 0.0 /100WBC 08/23/23 04:43 Sodium 142 mmol/L (135-145) 08/23/23 04:43 Potassium 4.4 mmol/L (3.5-4.5) 08/23/23 04:43 Chloride 110 mmol/L (101-111) 08/23/23 04:43 Carbon Dioxide 26 mmol/L (21-32) 08/23/23 04:43 Anion Gap 6.0 (6-13) 08/23/23 04:43 BUN 15 mg/dL (6-20) 08/23/23 04:43 Creatinine 1.1 mg/dL (0.6-1.3) 08/23/23 04:43 Estimated GFR (MDRD) 48 (>89) L 08/23/23 04:43 Glucose 127 mg/dL (74-104) H 08/23/23 04:43 Lactic Acid 0.8 mmol/L (0.5-2.2) 08/20/23 07:35 Calcium 9.2 mg/dL (8.5-10.3) 08/23/23 04:43 Total Bilirubin 0.4 mg/dL (0.2-1.0) 08/20/23 07:35 AST 22 IU/L (10-42) 08/20/23 07:35 ALT 30 IU/L (10-60) 08/20/23 07:35 Alkaline Phosphatase 83 IU/L (42-121) 08/20/23 07:35 Total Protein 6.5 g/dL (6.4-8.9) 08/20/23 07:35 Albumin 3.5 g/dL (3.2-5.5) 08/20/23 07:35 Globulin 3.0 g/dL (2.1-4.2) 08/20/23 07:35 Albumin/Globulin Ratio 1.2 (1.0-2.2) 08/20/23 07:35 Lipase 12 U/L (11-82) 08/20/23 07:35 Sepsis Event Note (H) - Evaluation Current Stage of Sepsis: Ruled out ABX Reporting Has patient been on IV antibiotics over the past 48 hours?: Yes Current Medications - Current Medications Current Medications: Active Medications Acetaminophen (Acetaminophen 325 Mg Tablet) 650 mg PO Q4HR PRN PRN Reason: Pain 1 to 4, or Fever Last Admin: 08/23/23 14:21 Dose: 650 mg Carboxymethylcellulose (Carboxymethylcellulose Ophth Drops) 1 drops EACHEYE PRN PRN PRN Reason: Dry Eye Cholecalciferol (Cholecalciferol 25 Mcg Tablet) 25 mcg PO DAILY [facility] Last Admin: 08/23/23 13:39 Dose: 25 mcg Diphenhydramine HCl (Diphenhydramine 25 Mg Capsule) 25 mg PO QPM PRN PRN Reason: Insomnia Last Admin: 08/22/23 21:46 Dose: 25 mg Ferrous Gluconate (Ferrous Gluconate 324 Mg Tablet) 324 mg PO DAILY [facility] Last Admin: 08/23/23 13:39 Dose: 324 mg Ceftriaxone Sodium 2 gm/ (Sodium Chloride) 100 mls @ 200 mls/hr IV DAILY [facility] Last Infusion: 08/23/23 10:32 Dose: Infused Lactobacillus Rhamnosus (Lactobacillus Rhamnosus Gg Capsule) 1 cap PO DAILY [facility] Last Admin: 08/23/23 13:39 Dose: 1 cap Lidocaine (Lidocaine Patch 5%) 1 patch TOP DAILY [facility] Last Admin: 08/23/23 09:40 Dose: 1 patch Magnesium Oxide (Magnesium Oxide 400 Mg Tablet) 400 mg PO QPM [facility] Last Admin: 08/23/23 20:31 Dose: 400 mg Morphine Sulfate (Morphine 2 Mg/Ml Carpuject) 2 mg IVP Q3H PRN PRN Reason: PAIN >8 Last Admin: 08/23/23 16:39 Dose: 2 mg Multivitamins (Multivitamin Tablet) 1 tab PO DAILYWM [facility] Last Admin: 08/23/23 13:39 Dose: 1 tab Ondansetron HCl (Ondansetron 4 Mg/2 Ml Vial) 4 mg IVP Q6HR PRN PRN Reason: Nausea / Vomiting Polyethylene Glycol (Polyethylene Glycol 3350 17 Gm Packet) 17 gm PO DAILY [facility] Last Admin: 08/23/23 09:41 Dose: Not Given Sodium Chloride (Sodium Chloride Flush 0.9% 10 Ml Syringe) 10 ml IVP PRN PRN PRN Reason: NEEDED PER PROVIDER ORDERS Last Admin: 08/20/23 16:26 Dose: 10 ml Sodium Chloride (Sodium Chloride Flush 0.9% 10 Ml Syringe) 10 ml IVP 0100,0900,1700 [facility] Last Admin: 08/23/23 15:50 Dose: 10 ml Cholecalciferol (Vitamin D3) [Vitamin D3] 1 cap PO DAILY 10/03/18 Magnesium 1 tab PO QPM 10/03/18 Multivitamin [One Daily Multivitamin] 1 tab PO DAILY 10/03/18 Acetaminophen [Tylenol Arthritis] 1 tab PO BID PRN 08/20/23 Acetaminophen/Diphenhydramine [[facility] Acetaminophen Pm Caplet] 2 tab PO QPM 08/20/[address] [Voltaren] 75 mg PO BIDWM 08/20/23 Doxycycline Hyclate 50 mg PO DAILY 08/20/23 Ferrous Gluconate [Fergon] 1 tab PO DAILY 08/20/23 Zinc Sulfate 1 cap PO DAILY 08/20/23
[2023-08-23] MEDS ORDERED: NALOXONE 0.4 MG/ML VIAL IVP PRN (12:32)
[2023-08-23] MEDS ORDERED: ePHEDrine 50 MG/ML VIAL IVP PRN (12:32)
[2023-08-23] MEDS ORDERED: METOCLOPRAMIDE 10 MG/2 ML VIAL IVP PRN (12:32)
[2023-08-23] MEDS ORDERED: HYDROmorphone 0.5 MG/0.5 ML SYRINGE IVP PRN (12:32)
[2023-08-23] MEDS ORDERED: ATROPINE ABBOJECT 1 MG/10 ML SYRINGE IVP PRN (12:32)
[2023-08-23] MEDS ORDERED: MORPHINE 2 MG/ML CARPUJECT IVP PRN (12:32)
[2023-08-23] MEDS ORDERED: ONDANSETRON 4 MG/2 ML VIAL IVP PRN (12:32)
[2023-08-23] MEDS ORDERED: fentaNYL 100 MCG/2 ML VIAL IVP PRN (12:32)
[2023-08-23] MEDS ORDERED: LACTATED RINGERS 1,000 ML IV SCH (13:00)
--- NOTE | 2023-08-23 13:32 | OPERATIVE REPORT ---
Operative Report - General Admit Date: 08/20/23 Procedure Date: 08/23/23 Planned Procedure: cytoscopy and left ureteral stent, possible ureteroscopy laser lithotripsy Pre-Op Diagnosis: Left ureteral stone, bacteremia Procedure Performed: cytoscopy and left ureteral stent Post Op Diagnosis: Left ureteral stone, bacteremia - Procedure Note Primary Surgeon: Bruce Anesthesia Technique: General LMA Estimated Blood Loss (mL): 0 Indications: Left ureteral stone, UTI, bacteremia Findings: Impacted distal left ureteral stone significant bladder erythema Complications: none - Other Other Information/Narrative: After informed consent was obtained the patient was brought to the OR and laid in the supine position. The patient was anesthetized per anesthesia protocols and prepped and draped in the usual sterile fashion. She was placed in dorsolithotomy position A formal timeout was performed reconfirming the patient, procedure and laterality. A 22 [place] cystoscope was advanced into the urinary bladder. The bladder was noted to significant erythema with mucosal irregularities consistent with infection. Scant imaging showed a radiopaque stone about 10 mm in length and 3 mm in width in the distal ureter on the left. We attempted to place a sensor wire past the stone but could not go past. We then tried an angled sensor wire which was not successful. We then used a short semirigid ureteroscope and gently passed up to the level of the stone, we were then able to the sensor wire past the stone up into the kidney. There was a reed of dark and possibly purulent urine. For this reason and the mucosal irregularities of the bladder it was decided not to perform a laser lithotripsy as this may increase the risk of worsening infection. A 6 Green[place]ic, 24 cm double-J ureteral stent was placed with improvement in the kidney and the bladder. The bladder was emptied. This concluded the procedure patient was reversed from anesthesia and brought to the PACU without further incident. She will return to the medical service. She will go home to complete 14 days of antibiotics. I will arrange follow-up for her future stone procedure
[2023-08-23] MEDS ORDERED: LACTATED RINGERS 1,000 ML IV ONE (13:33)
[2023-08-23] MEDS: CHOLECALCIFEROL 25 MCG TABLET PO SCH (13:39)
[2023-08-23] MEDS: LACTOBACILLUS RHAMNOSUS GG CAPSULE PO SCH (13:39)
[2023-08-23] MEDS: MULTIVITAMIN TABLET PO SCH (13:39)
[2023-08-23] MEDS: MORPHINE 2 MG/ML CARPUJECT IVP PRN ×2 (13:39→16:39)
[2023-08-23] MEDS: FERROUS GLUCONATE 324 MG TABLET PO SCH (13:39)
--- NOTE | 2023-08-23 16:55 | ANESTHESIA POST OP EVALUATION ---
Anesthesia Post Eval - Post Anesthesia Eval Vitals: Last Vital Signs Temp 36.6 C 08/23/23 15:41 Pulse 67 08/23/23 15:41 Resp 16 08/23/23 15:41 BP 168/69 H 08/23/23 15:41 Pulse Ox 96 08/23/23 15:41 O2 Flow Rate CV Function Including HR & BP: Stable Pain Control: Satisfactory Nausea & Vomiting: Negative Mental Status: Baseline Respiratory Status: Airway Patent Hydration Status: Satisfactory Anesthesia Complications: None
[2023-08-23] MEDS: MAGNESIUM OXIDE 400 MG TABLET PO SCH (20:31)
[2023-08-23] MEDS: diphenhydrAMINE 25 MG CAPSULE PO PRN (22:43)
[2023-08-24] MEDS: SODIUM CHLORIDE FLUSH 0.9% 10 ML SYRINGE IVP SCH ×2 (01:30→08:20)
[2023-08-24 04:01] VITALS: O2SAT 96
[2023-08-24 04:55] LABS: BASOPHILS # (AUTO) 0.1 10^3/uL (0.0-0.1); BASOPHILS % (AUTO) 0.6 %; EOSINOPHILS # (AUTO) 0.3 10^3/uL (0.0-0.7); EOSINOPHILS % (AUTO) 3.1 %; HCT - HEMATOCRIT 36.5 % (37.0-47.0); LYMPHOCYTES # (AUTO) 2.3 10^3/uL (1.5-3.5); LYMPHOCYTES % (AUTO) 26.7 %; MEAN CORPUSCULAR HGB CONC 32.9 g/dL (32.0-36.0); MEAN CORPUSCULAR VOLUME 88.2 fL (81.0-99.0); MEAN PLATELET VOLUME 9.1 fL (7.9-10.8); MONOCYTES # (AUTO) 0.6 10^3/uL (0.0-1.0); MONOCYTES % (AUTO) 6.9 %; NEUTROPHILS # (AUTO) 5.4 10^3/uL (1.5-6.6); PLT - PLATELET COUNT 256 10^3/uL (130-450); RED BLOOD COUNT 4.14 10^6/uL (4.20-5.40); RED CELL DISTRIBUTION WIDTH 13.2 % (12.0-15.0); WHITE BLOOD COUNT 8.8 x10^3/uL (4.8-10.8)
[2023-08-24 05:08] LABS: CALCIUM 9.1 mg/dL (8.5-10.3)
[2023-08-24 07:44] VITALS: BP 147/74
[2023-08-24] MEDS: CHOLECALCIFEROL 25 MCG TABLET PO SCH (08:19)
[2023-08-24] MEDS: polyethylene glycoL 3350 17 GM PACKET PO SCH (08:19)
[2023-08-24] MEDS: LIDOCAINE PATCH 5% TOP SCH (08:19)
[2023-08-24] MEDS: LACTOBACILLUS RHAMNOSUS GG CAPSULE PO SCH (08:19)
[2023-08-24] MEDS: FERROUS GLUCONATE 324 MG TABLET PO SCH (08:19)
[2023-08-24] MEDS: MULTIVITAMIN TABLET PO SCH (08:19)
[2023-08-24] MEDS: ACETAMINOPHEN 325 MG TABLET PO PRN (08:25)
[2023-08-24] MEDS: cefTRIAXone 2 GM in SODIUM CHLORIDE 0.9% MINIBAG 100 ML IV SCH (09:00)
--- NOTE | 2023-08-24 11:10 | Discharge Plan ---
Discharge Plan Problem Reviewed?: Yes Disposition: Home, Self Care Condition: Stable Prescriptions: Lactobacillus Rhamnosus GG [Culturelle] 1 cap PO DAILY 10 Days #10 cap Diet: Regular Activity Restrictions: No Restrictions Shower Restrictions: No Driving Restrictions: No Weight Bearing: Full Weight Instruction Topics: E Coli Infec, Stents Ureteral Health Concerns: You have E. coli bacteremia showed culture collected on 08/19/2023. You have received 7 days IV antibiotics called ceftriaxone. Your bacteremia has resolved the repeat culture 08/20/2023 has no growth to date. Please complete another 7 days of levofloxacin oral. Follow-up with urology as outpatient. Plan of Treatment: Total 14 days of antibiotics treatment. Urethral stent was placed 08/23/2023, urology follow-up within 2 weeks Assessment: Improved, stable Resolved the bacteremia No Smoking: If you smoke, Please STOP! Call for help. Follow-up with: Maldonado Barrera MD [Provider Admit Priv/Credential] -
--- NOTE | 2023-08-24 11:18 | DISCHARGE SUMMARY ---
"Discharge Summary Admit Date: 08/20/23 Discharge Date: 08/24/23 Discharging Provider: Reuben Apple Code Status: Attempt Resuscitation Condition at Discharge: Stable Discharge Disposition: 01 Home, Self Care - DIAGNOSES Admission Diagnoses: E. coli bacteremia, urethral stone with hydronephrosis Discharge Diagnoses with Status of Each Condition: E. coli bacteremia, resolved Urethral stone with hydronephrosis, s/P urethral stent placement - HPI History of Present Illness: A 78 years old female with history of arthritis, CKD and recurrent UTI. She reports that she had worsening mental status, she was out with friends and felt worse was driven home by a friend. They report her being unresponsive and staring ahead will be of passenger in the car. When she got home she was more confused than normal and EMS was called. She was brought to our emergency room was found to have fever of 39.4 and tachycardia of 120. She described having generalized malaise for a day. She denies further symptoms and she always has left flank area pain because of sciatica, in the ER her UA shows sign of infection WBC 11.5 no lactic acid. She was discharged home and given Levaquin. After few hours the blood culture done in the ER turn positive she was called to come back into the ER. Upon presentation to the ED she had normal vital signs was afebrile, her WBC count was unchanged at 11.4 BUN/creatinine is normal and unchanged. CT of the abdomen pelvis was done which showed 5 mm stone in the distal left ureter causi ng moderate to severe hydronephrosis. She also has finding of pyelonephritis. The ED provider reached out to on-call urologist, who recommended patient sent home with no urgent need for stent. However patient need to be admitted for bacteremia. Second opinion from a different urologist Dr. Barrera who recommended stent placement with consideration of the hydronephrosis and UTI and bacteremia. Patient was admitted and given ceftriaxone. - CONSULTS | PROCEDURES Consultations: Dr. Barrera Urology Procedures: Urethral stent placed 08/23/2023 - HOSPITAL COURSE Hospital Course: After admission, patient vitals were within normal limits, afebrile through out the hospital stay. Leukocytosis resolved. Continue with ceftriaxone 2 g daily received total 7 doses during hospital stay. Urology placed stent 08/23/2023, noted some purulent urine when attempting removing the stone therefore stent was placed in. Recommend patient to complete total 14 days of antibiotics treatment course and follow-up with urology as outpatient to arrange stone retrieval. Patient is discharged on 08/24/2023 in stable condition. Recommend patient continue taking the Levaquin that was ordered 08/19/2023. The blood culture shows pansensitive E. coli. Repeat culture on 08/20/2023 no growth to date. - ALLERGIES Allergies/Adverse Reactions: Allergies Allergy/AdvReac Type Severity Reaction Status Date / Time codeine [Codeine] AdvReac Intermediate Nausea Verified 08/20/23 17:24 - MEDICATIONS Home Medications: Ambulatory Orders Medication Instructions Recorded Confirmed Cholecalciferol (Vitamin D3) 1 cap PO DAILY 10/03/18 08/20/23 [Vitamin D3] Magnesium 1 tab PO QPM 10/03/18 08/20/23 Multivitamin [One Daily 1 tab PO DAILY 10/03/18 08/20/23 Multivitamin] levoFLOXacin [Levaquin] 500 mg PO QD #20 tablet 08/19/23 Acetaminophen [Tylenol Arthritis] 1 tab PO BID PRN 08/20/23 08/20/23 Acetaminophen/Diphenhydramine [[facility] 2 tab PO QPM 08/20/23 08/20/23 Acetaminophen Pm Caplet] Diclofenac Sodium Dr [Voltaren] 75 mg PO BIDWM 08/20/23 08/20/23 Doxycycline Hyclate 50 mg PO DAILY 08/20/23 08/20/23 Ferrous Gluconate [Fergon] 1 tab PO DAILY 08/20/23 08/20/23 Zinc Sulfate 1 cap PO DAILY 08/20/23 08/20/23 Lactobacillus Rhamnosus GG 1 cap PO DAILY 10 Days #10 cap 08/24/23 [Culturelle] - PHYSICAL EXAM AT DISCHARGE General Appearance: positive: No acute distress, Alert Eyes Bilateral: positive: PERRL, EOMI ENT: positive: No signs of dehydration Neck: positive: Nml inspection, No JVD Respiratory: positive: Chest non-tender, No respiratory distress Cardiovascular: positive: Regular rate & rhythm Skin: positive: Color nml, Warm, Dry Extremities: positive: No pedal edema - LABS Result Diagrams: 08/24/23 04:42 08/24/23 04:42 - DIAGNOSTIC IMAGING Diagnostic Imaging Results: Final report reviewed - SEPSIS Current Stage of Sepsis: Ruled out - QUALITY (Female Hip Fx Only) Was patient sent home on osteoporosis medication?: No - FOLLOW UP Follow Up: PCP and urology - TIME SPENT Time Spent in Discharge (Minutes): 55"
--- NOTE | 2023-08-24 16:38 | XRAY Report ---
PROCEDURE: OR C-Arm Procedure INDICATIONS: stent placement FLUORO TIME: 0.01 TECHNIQUE: Intraoperative image provided for evaluation. COMPARISON: CT abdomen pelvis 08/20/2023 FINDINGS: Partially visualized hip arthroplasty is present. Apparent catheter device is noted overlying the low er pelvis. There is no right left amputation on the image.. IMPRESSION: Intraoperative image above. Reviewed by: Phylicia Jiang MD on 08/24/2023 4:37 PM PDT Approved by: Phylicia Jiang MD on 08/24/2023 4:37 PM PDT Station ID: [id number]
== END 2023-08-24 11:56 | disposition home or self-care (01) | DRG 690 ==
LOC: ED 06:21 → MS2 15:38 → MS3 08-22 11:52
PROVIDERS: ADMIT Internal Medicine; ATTEND Internal Medicine
PROC: 0T9780Z Drainage of Left Ureter with Drainage Device, Via Natural or Artificial Opening Endoscopic (ICD-10-PCS; principal; 2023-08-23 12:00)
DX: N13.6 Pyonephrosis (principal); Z68.41 Body mass index [BMI] 40.0-44.9, adult; B96.20 Unspecified Escherichia coli [E. coli] as the cause of diseases classified elsewhere; F32.A Depression, unspecified; M47.898 Other spondylosis, sacral and sacrococcygeal region; E66.01 Morbid (severe) obesity due to excess calories; N18.9 Chronic kidney disease, unspecified; M79.652 Pain in left thigh; I73.9 Peripheral vascular disease, unspecified; Z87.891 Personal history of nicotine dependence
CPT/HCPCS: 36415; 74177; 80048; 80053; 83605; 83690; 85025; 87040; 93971; 96374; 96375; 99285; A9270; C1758; C2617; J7120; Q9967

== ENCOUNTER 2023-09-24 07:59 | Day surgery (SDC) | payer MEDICARE ==
[2023-09-24] MEDS ORDERED: CIPROFLOXACIN 400 MG/200 ML 400 MG/200 ML BAG IV ONE (08:14)
[2023-09-24] MEDS ORDERED: LACTATED RINGERS 1,000 ML IV ONE (08:45)
[2023-09-24] MEDS ORDERED: LIDOCAINE 2% URO-JET 5 ML SYRINGE UR ONE ×2 (09:56→10:22)
[2023-09-24] MEDS ORDERED: fentaNYL 100 MCG/2 ML VIAL ONE (10:10)
[2023-09-24] MEDS ORDERED: PROPOFOL 200 MG/20 ML VIAL IVP ONE ×2 (10:10→10:48)
[2023-09-24] MEDS ORDERED: ATROPINE ABBOJECT 1 MG/10 ML SYRINGE IVP PRN (10:17)
[2023-09-24] MEDS ORDERED: HYDROmorphone 0.5 MG/0.5 ML SYRINGE IVP PRN (10:17)
[2023-09-24] MEDS ORDERED: MORPHINE 2 MG/ML CARPUJECT IVP PRN (10:17)
[2023-09-24] MEDS ORDERED: NALOXONE 0.4 MG/ML VIAL IVP PRN (10:17)
[2023-09-24] MEDS ORDERED: ONDANSETRON 4 MG/2 ML VIAL IVP PRN ×2 (10:17→10:40)
[2023-09-24] MEDS ORDERED: METOCLOPRAMIDE 10 MG/2 ML VIAL IVP PRN (10:17)
[2023-09-24] MEDS ORDERED: ePHEDrine 50 MG/ML VIAL IVP PRN (10:17)
[2023-09-24] MEDS ORDERED: fentaNYL 100 MCG/2 ML VIAL IVP PRN (10:17)
--- NOTE | 2023-09-24 10:21 | ANESTHESIA ---
Pre-Anesthesia VS, & Labs - Diagnosis L renal calculi - Procedure L cystoscopy, uteroscopy, stent exchange Vital Signs: Temp Pulse Resp BP Pulse Ox O2 Flow Rate 36.5 C 82 16 157/92 H 97 09/24/23 08:20 09/24/23 08:20 09/24/23 08:20 09/24/23 08:20 09/24/23 08:20 Height: 5 ft 6 in Weight (kg): 112.4 kg Body Mass Index: 39.9 BMI Classification: Obese - NPO >8 hours - Is Patient ?: No Home Medications and Allergies Active Medications Atropine Sulfate (Atropine Abboject 1 Mg/10 Ml Syringe) 0.5 mg IVP Q5M PRN PRN Reason: Bradycardia Stop: 09/25/23 10:17 Ephedrine Sulfate (Ephedrine 50 Mg/Ml Vial) 10 mg IVP Q5M PRN PRN Reason: HYPOTENSION Stop: 09/25/23 10:17 Fentanyl (Fentanyl 100 Mcg/2 Ml Vial) 25 - 50 mcg IVP Q5M PRN PRN Reason: BREAKTHROUGH PAIN (2nd Choice) Stop: 09/25/23 10:17 Hydromorphone HCl (Hydromorphone 0.5 Mg/0.5 Ml Syringe) 0.2 - 0.6 mg IVP Q5M PRN PRN Reason: PAIN (First Choice) Stop: 09/25/23 10:17 Lactated Ringer's (Lr) 1,000 mls @ 100 mls/hr IV .Q10H TOYA Stop: 09/24/23 20:59 Metoclopramide HCl (Metoclopramide 10 Mg/2 Ml Vial) 10 mg IVP Q6HR PRN PRN Reason: N/V not relieved by Zofran Morphine Sulfate (Morphine 2 Mg/Ml Carpuject) 2 - 4 mg IVP Q5M PRN PRN Reason: PAIN (3rd Choice) Stop: 09/25/23 10:17 Naloxone HCl (Naloxone 0.4 Mg/Ml Vial) 0.1 mg IVP Q2M PRN PRN Reason: RESP RATE <8 Stop: 09/25/23 10:17 Ondansetron HCl (Ondansetron 4 Mg/2 Ml Vial) 4 mg IVP ONCE PRN PRN Reason: N/V (First Choice) Stop: 09/25/23 10:17 Cholecalciferol (Vitamin D3) [Vitamin D3] 1 cap PO DAILY 10/03/18 Magnesium 1 tab PO QPM 10/03/18 Multivitamin [One Daily Multivitamin] 1 tab PO DAILY 10/03/18 Acetaminophen [Tylenol Arthritis] 1 tab PO BID PRN 08/20/23 Acetaminophen/Diphenhydramine [[facility] Acetaminophen Pm Caplet] 2 tab PO QPM 08/20/[address] [Voltaren] 75 mg PO QPM 08/20/23 Doxycycline Hyclate 50 mg PO DAILY 08/20/23 Ferrous Gluconate [Fergon] 1 tab PO DAILY 08/20/23 Zinc Sulfate 1 cap PO DAILY 08/20/23 Allergies/Adverse Reactions: Allergies Allergy/AdvReac Type Severity Reaction Status Date / Time semaglutide [From Ozempic] Allergy nausea, Verified 09/17/23 12:48 shakiness codeine [Codeine] AdvReac Intermediate Nausea Verified 08/20/23 17:24 Anes History & Medical History - Anesthetic History Anesthesia Complications: reports: No previous complications Family history of Anesthesia Complications: Denies Family history of Malignant Hyperthermia: Denies - Medical History Cardiovascular: reports: None Pulmonary: reports: None Gastrointestinal: reports: None Urinary: reports: Incontinence, Frequency Neuro: reports: None Musculoskeletal: reports: Chronic back pain Endocrine/Autoimmune: reports: HyPOthyroidism Blood Disorders: reports: None Skin: reports: Herpes zoster, Other Smoking Status: Former smoker - Surgical History Eyes Ears Nose Throat (EENT): reports: Cataracts Gynecologic: reports: Other Orthopedic: reports: Hip replacement Dermatologic: reports: Skin cancer surgery Exam General: Alert, Oriented x3, Cooperative Dental: WNL Mouth Openin Fingerbreadth Neck Mobility: Limited Mallampati classification: II Thyromental Distance: less than 4 cm Respiratory: Lungs clear Cardiovascular: Regular rate Plan Anesthesia Type: General Consent for Procedure(s) Verified and Reviewed: Yes Code Status: Attempt Resuscitation ASA classification: 3-Severe systemic disease Is this case an emergency?: No
[2023-09-24] MEDS ORDERED: HYDROcod/ACETAM 5/325 MG TABLET PO PRN (10:40)
[2023-09-24] MEDS ORDERED: KETOROLAC 30 MG/ML VIAL ONE (10:42)
[2023-09-24] MEDS ORDERED: LACTATED RINGERS 800 ML IV ONE (10:44)
--- NOTE | 2023-09-24 10:47 | Discharge Plan ---
Discharge Plan Problem Reviewed?: Yes Disposition: Home, Self Care Condition: Good Prescriptions: Docusate Sodium 100Mg Capsule [Colace 100Mg Capsule] 100 mg PO DAILY #14 cap levoFLOXacin [Levofloxacin] 500 mg PO DAILY #8 tablet HYDROcod/ACETAM 5/325 [Almo 5/325] 1 tab PO Q4H PRN #10 tablet PRN Reason: Pain Diet: Regular Activity Restrictions: No Restrictions Shower Restrictions: No Driving Restrictions: No Instruction Topics: Stents Ureteral No Smoking: If you smoke, Please STOP! Call for help.
--- NOTE | 2023-09-24 10:51 | OPERATIVE REPORT ---
Operative Report - General Procedure Date: 09/24/23 Planned Procedure: Cystoscopy, left ureteroscopy, laser lithotripsy, stent exchange Pre-Op Diagnosis: Left ureteral stone Procedure Performed: Cystoscopy, left ureteroscopy, laser lithotripsy, basket stone extraction, stent exchange Post Op Diagnosis: Left ureteral stone - Procedure Note Primary Surgeon: Bruce Anesthesia Provider: HIGINIO Anesthesia Technique: General LMA Pathology: left ureteral stone Indications: Left ureteral stone with stent in place Findings: Left distal radioopaque stone, embedded in wall of ureter Complications: none - Other Other Information/Narrative: After informed consent was obtained the patient was brought to the OR and laid in the supine position. The patient was anesthetized per anesthesia protocols and prepped and draped in the usual sterile fashion in the dorsolithotomy position. A formal timeout was performed reconfirming the patient, procedure and laterality. Fluoroscopy showed a distal stone about [address] in the left ureter along with an old stent. A 22 [place] cystoscope was advanced easily into the urinary bladder the bladder was inspected and full there were no masses lesions or other concerns, there was a mild amount of edema around the left ureteral orifice where an old stent was emanating from it. It was not encrusted. A sensor wire was placed alongside that stent up into the kidney this was done with some difficulty but we did get access. We then grasped and removed the old stent en bloc. Using a short semirigid ureteroscope which was advanced up until the distal ureter we could see the stone. It was yellow and crystalline with dark green portions consistent with a calcium stone. It had a lot of ureteral edema around it and it appeared to be embedded in the lateral wall of the ureter. Using a 200 m laser fiber the power of 1.0 and a rate of 8 we are able to fragment the stone to small pieces and peeled off of the ureteral mucosa. When the stone was small enough it was then grasped using a basket and sent for analysis. We inspected the mid ureter and there were no other stone fragments and nothing else on fluoroscopy was seen. A 6 [place] 24 cm double-J ureteral stent was placed with good curling noted in the kidney and good curling noted in the bladder. The bladder was emptied and a Uro-Jet was placed. This concluded the procedure and the patient tolerated the procedure well. She will follow-up in about 3 weeks time for stent removal in the office. All counts were correct
[2023-09-24] MEDS ORDERED: LACTATED RINGERS 1,000 ML IV SCH (11:00)
--- NOTE | 2023-09-24 11:07 | ANESTHESIA POST OP EVALUATION ---
Anesthesia Post Eval - Post Anesthesia Eval Vitals: Last Vital Signs Temp 36.1 C L 09/24/23 10:44 Pulse 63 09/24/23 11:00 Resp 20 09/24/23 11:00 BP 163/82 H 09/24/23 11:00 Pulse Ox 96 09/24/23 11:00 O2 Flow Rate CV Function Including HR & BP: Stable Pain Control: Satisfactory Nausea & Vomiting: Negative Mental Status: Baseline Respiratory Status: Airway Patent Hydration Status: Satisfactory Anesthesia Complications: None
[2023-09-24] MEDS ORDERED: HYDROmorphone 0.5 MG/0.5 ML SYRINGE ONE (11:15)
[2023-09-24] MEDS ORDERED: HYDROcod/ACETAM 5/325 MG TABLET ONE (11:36)
[2023-09-24 11:46] VITALS: O2SAT 99
--- NOTE | 2023-09-24 12:12 | XRAY Report ---
PROCEDURE: OR C-Arm Procedure INDICATIONS: STENT FLUORO TIME: 0.1 MIN TECHNIQUE: 3 intraoperative fluoroscopic images of left abdomen were obtained. COMPARISON: None. FINDINGS: Intraoperative fluoroscopic images shows placement of a left-sided ureteral stent. IMPRESSION: Guidance provided intraoperatively for left ureteral stent placement. Reviewed by: Chad Watts MD on 09/24/2023 12:11 PM PST Approved by: Chad Watts MD on 09/24/2023 12:11 PM PST Station ID: [id number]
[2023-09-24 12:15] VITALS: BP 142/88
== END 2023-09-24 08:00 | disposition home or self-care (01) ==
LOC: SDS 07:59
PROVIDERS: ATTEND Urology
PROC: 0T778DZ Dilation of Left Ureter with Intraluminal Device, Via Natural or Artificial Opening Endoscopic (ICD-10-PCS; 2023-09-24)
PROC: 0TC78ZZ Extirpation of Matter from Left Ureter, Via Natural or Artificial Opening Endoscopic (ICD-10-PCS; principal; 2023-09-24 09:30)
DX: N20.1 Calculus of ureter (principal)
CPT/HCPCS: 52356; A9270; C1758; C2617; J1170; J7120

== ENCOUNTER 2024-01-31 15:16 | Outpatient (CLI) | payer MEDICARE ==
--- NOTE | 2024-01-31 16:19 | XRAY Report ---
PROCEDURE: Abdomen 1 V INDICATIONS: HX OF KIDNEY STONES TECHNIQUE: One view of the abdomen acquired. COMPARISON: CT 08/20/2023 FINDINGS: Surgical changes and devices: None. Bowel: Bowel gas pattern is normal. Soft tissues: No suspicious abdominal calcifications. Visualized solid organ contours appear normal in size. Calcifications project over the gallbladder. Bones: No suspicious bony lesions. Well-aligned bilateral hip arthroplasties without hardware compl ication. IMPRESSION: The previously described distal left ureteral calcification is no longer visualized, presumably passe d. Cholelithiasis. Reviewed by: Quirino Reynolds MD on 01/31/2024 4:18 PM PDT Approved by: Quirino Reynolds MD on 01/31/2024 4:18 PM PDT Station ID: [id number]
== END 2024-01-31 15:17 | disposition home or self-care (01) ==
LOC: DI 15:16
PROVIDERS: ATTEND Urology
DX: K80.20 Calculus of gallbladder without cholecystitis without obstruction (principal)

== ENCOUNTER 2024-03-14 17:09 | Emergency (ER) | payer MEDICARE ==
--- NOTE | 2024-03-14 17:39 | ED Physician Documentation ---
PD HPI Fall - Stated complaint Stated Complaint: GLF,R SIDE PX - Chief complaint Chief Complaint: General - History obtained from History obtained from: Patient - History of Present Illness Mechanism of injury: Tripped Fall distance: Standing position (She was getting up onto a deck approximately a 2 foot step and tripped and fell to the right striking her chest on the decking. Pain localized to the lateral chest area. Denies injury to the head or neck. Hurts with movement and breathing.) PD PAST MEDICAL HISTORY - Past Medical History Past Medical History: Yes Cardiovascular: None Respiratory: None Neuro: None Endocrine/Autoimmune: HyPOthyroidism GI: None [employer]: None : Incontinence, Frequency HEENT: Chronic vision loss Psych: Depression, Anxiety Musculoskeletal: Chronic back pain Derm: Herpes zoster, Other - Past Surgical History Past Surgical History: No Ortho: Hip replacement /[employer]ELOPER: Other HEENT: Cataracts Derm: Skin cancer surgery - Present Medications Home Medications: Ambulatory Orders Medication Instructions Recorded Confirmed Cholecalciferol (Vitamin D3) 1 cap PO DAILY 10/03/18 03/14/24 [Vitamin D3] Magnesium 1 tab PO QPM 10/03/18 03/14/24 Multivitamin [One Daily 1 tab PO DAILY 10/03/18 03/14/24 Multivitamin] Acetaminophen/Diphenhydramine [[facility] 2 tab PO QPM 08/20/23 03/14/24 Acetaminophen Pm Caplet] Doxycycline Hyclate 50 mg PO DAILY 08/20/23 03/14/24 Ferrous Gluconate [Fergon] 1 tab PO DAILY 08/20/23 03/14/24 Zinc Sulfate 1 cap PO DAILY 08/20/23 03/14/24 DULoxetine [Cymbalta] 40 mg PO DAILY 03/14/24 03/14/24 Solifenacin Succinate [Vesicare] 5 mg PO DAILY 03/14/24 03/14/24 - Allergies Allergies/Adverse Reactions: Allergies Allergy/AdvReac Type Severity Reaction Status Date / Time semaglutide [From Ozempic] Allergy nausea, Verified 03/14/24 17:18 shakiness codeine [Codeine] AdvReac Intermediate Nausea Verified 03/14/24 17:18 - Social History Does the pt smoke?: No Smoking Status: Never smoker Does the pt drink ETOH?: No Does the pt have substance abuse?: No - Immunizations Immunizations are current?: Yes Immunizations: TDAP >10years/unknown - POLST Patient has POLST: No Results - Vitals Vitals: Vital Signs - 24 hr 03/14/24 03/14/24 03/14/24 17:15 19:05 20:30 Temperature 36.5 C Heart Rate 92 81 86 Respiratory 18 16 16 Rate Blood Pressure 154/98 H 153/92 H 168/93 H O2 Saturation 98 95 93 03/14/24 20:55 Temperature 36.9 C Heart Rate 81 Respiratory 16 Rate Blood Pressure 169/93 H O2 Saturation 95 Oxygen O2 Source Room air - Labs Labs: Laboratory Tests 03/14/24 03/14/24 18:17 18:17 WBC 9.4 RBC 4.98 Hgb 14.7 Hct 44.2 MCV 88.8 MCH 29.5 MCHC 33.3 RDW 13.5 Plt Count 221 MPV 9.7 Neut # (Auto) 6.0 Lymph # (Auto) 2.4 [place] # (Auto) 0.7 Eos # (Auto) 0.1 Baso # (Auto) 0.0 Absolute Nucleated RBC 0.00 Nucleated RBC % 0.0 Sodium 138 Potassium 4.2 Chloride 106 Carbon Dioxide 25 Anion Gap 7.0 BUN 14 Creatinine 1.1 Estimated GFR (MDRD) 48 L Glucose 104 Calcium 9.9 - Rads (name of study) chest CT Relevant Findings:: Prelim report reviewed (no rib fractures. lung without injury. Breast nodule. ), EMP independent interpretation of test PD Medical Decision Making - ED course Complexity details: reviewed results (Wanting to evaluate for certainty on organ injury of long and upper abdominal organs, I feel a CT is more valid and will be more accurate for ribs as well.), considered differential (She was trying to get up a couple of foot step up onto a deck and lost balance and fell to her right side with pain at the right chest wall. Denies head injury. No blood thinners.), d/w patient Reviewed Lab Results: CT chest pending at time of shift change, but reviewed here now. No rib fractures nor organ injuries. Note made of breast nodule with recommendation for follow up. Will se if thiss was conveyed by next provider. Departure - Departure Disposition: 01 Home, Self Care Clinical Impression: Fall from slip, trip, or stumble, Chest wall contusion, Breast nodule Condition: Stable Record reviewed to determine appropriate education?: Yes Instructions: ED Contusion Rib Comments: You were seen in the emergency department for chest wall pain. You have no broken ribs on CT. Please take tylenol 650mg every 6 hours as needed for pain. You do have a nodule on your right breast and need follow up ultrasound or mammogram. Please follow-up with your primary care provider to coordinate this and return to the emergency department if you have any new or worsening symptoms or other concerns. Forms: PCP List Discharge Date/Time: 03/14/24 21:00
[2024-03-14] MEDS ORDERED: iohexoL-300 100 ML VIAL ONE (18:13)
[2024-03-14] MEDS: SODIUM CHLORIDE 0.9% 1,000 ML IV STA (18:20)
[2024-03-14] MEDS: KETOROLAC 30 MG/ML VIAL IVP STA (18:23)
[2024-03-14] MEDS: HYDROmorphone 0.5 MG/0.5 ML SYRINGE IVP STA (18:23)
[2024-03-14] MEDS: ONDANSETRON 4 MG/2 ML VIAL IVP STA (18:23)
[2024-03-14 18:25] LABS: BASOPHILS % (AUTO) 0.4 %; EOSINOPHILS # (AUTO) 0.1 10^3/uL (0.0-0.7); EOSINOPHILS % (AUTO) 1.5 %; HCT - HEMATOCRIT 44.2 % (37.0-47.0); HGB - HEMOGLOBIN 14.7 g/dL (12.0-16.0); LYMPHOCYTES # (AUTO) 2.4 10^3/uL (1.5-3.5); LYMPHOCYTES % (AUTO) 25.7 %; MEAN CORPUSCULAR HEMOGLOBIN 29.5 pg (27.0-31.0); MEAN CORPUSCULAR HGB CONC 33.3 g/dL (32.0-36.0); MEAN CORPUSCULAR VOLUME 88.8 fL (81.0-99.0); MEAN PLATELET VOLUME 9.7 fL (7.9-10.8); MONOCYTES # (AUTO) 0.7 10^3/uL (0.0-1.0); MONOCYTES % (AUTO) 7.9 %; NEUTROPHILS % (AUTO) 64.2 %; PLT - PLATELET COUNT 221 10^3/uL (130-450); RED BLOOD COUNT 4.98 10^6/uL (4.20-5.40); RED CELL DISTRIBUTION WIDTH 13.5 % (12.0-15.0); WHITE BLOOD COUNT 9.4 x10^3/uL (4.8-10.8)
[2024-03-14 18:42] LABS: CALCIUM 9.9 mg/dL (8.5-10.3); CREATININE 1.1 mg/dL (0.6-1.3); POTASSIUM 4.2 mmol/L (3.5-4.5)
[2024-03-14] MEDS: iohexoL-300 100 ML VIAL IVP ONE (19:01)
--- NOTE | 2024-03-14 20:09 | CT Report ---
PROCEDURE: Chest W INDICATIONS: fall with right chest pain on move/breath CONTRAST: 100ml omni 300 TECHNIQUE: After the administration of intravenous contrast, a CT scan of the chest was performed. Images were recorded and evaluated at appropriate window settings. Reformats: axial MIP of the chest, coronal and sagittal. For radiation dose reduction, the following was used: automated exposure control, adjustme nt of mA and/or kV according to patient size. COMPARISON: CT abdomen pelvis 08/20/2023. FINDINGS: Image quality: Diagnostic. Chest wall and lower neck: No thyroid nodule which requires sonographic follow up. Possible nodule in the right breast 6:00 region measuring 1.6 cm, (2/61). No axillary or supraclavicular adenopathy by size. Lungs and pleura: No consolidation. No pleural effusions. No pneumothorax. No suspicious pulmonary no dules which require follow up. Mediastinum: Heart size is normal. Mitral annular calcification. No pericardial effusion. No large ve ssel abnormality. No mediastinal adenopathy by size criteria. Bones: No aggressive osseous abnormality. No discrete rib fracture. Upper Abdomen: Hepatic steatosis. Small gallstones. No adrenal nodule. IMPRESSION: 1. No displaced rib fracture. 2. Lungs are clear. No pleural effusion. No pneumothorax. 3. Possible nodule in the right breast 6:00 region. -Recommend mammogram and ultrasound for further evaluation. Reviewed by: David Westfall MD on 03/14/2024 8:07 PM PDT Approved by: David Westfall MD on 03/14/2024 8:07 PM PDT Station ID: [id number]
--- NOTE | 2024-03-14 20:43 | ED Physician Documentation ---
ED Addendum - Addendum Addendum: 03/14/24 20:42 Patient endorsed to me by Dr. Gill awaiting CT results. She has right breast nodule and recommend ultrasound follow-up which I discussed with the patient. No rib fractures. She can take Tylenol as needed at home. Return precautions given. Impression 1 fall 2 rib pain Disposition Home Condition stable
[2024-03-14 21:05] VITALS: BP 169/93; O2SAT 95
== END 2024-03-14 21:00 | disposition home or self-care (01) ==
LOC: ED 17:09
DX: S20.211A Contusion of right front wall of thorax, initial encounter (principal); W10.8XXA Fall (on) (from) other stairs and steps, initial encounter; Y93.89 Activity, other specified; Y92.008 Other place in unspecified non-institutional (private) residence as the place of occurrence of the external cause; N63.15 Unspecified lump in the right breast, overlapping quadrants
CPT/HCPCS: 36415; 71260; 80048; 85025; 96374; 96375; 99283; 99284; J1170; Q9967